=== PATIENT | female | born 1955 | race Caucasian/White ===

== ENCOUNTER 2021-07-12 06:13 | Day surgery (SDC) | payer MEDICARE, OTHER ==
[2021-07-11 08:53] VITALS: BMI 38.4
--- NOTE | 2021-07-11 17:02 | HP ---
HISTORY AND PHYSICAL DATE OF SURGERY: 07/12/2021 Maite Soni is a 66-year-old patient seen with progressive left shoulder pain. We discussed options for treatment. She elected to proceed with left shoulder arthroscopy. Consent was obtained. Medical clearance was provided by Dr. Espinoza Batres. PAST MEDICAL HISTORY: Hypertension, hyperlipidemia, [id number]-tioqzpdqa diabetes. PAST SURGICAL HISTORY: Hysterectomy. DAILY MEDICATIONS: Allopurinol, hydrochlorothiazide, levothyroxine, metformin, pravastatin. ALLERGIES: NONE. SOCIAL HISTORY: She denies current tobacco use. PHYSICAL EVALUATION OF THE LEFT SHOULDER: Flexion is 90 degrees. Abduction is 50 degrees. External rotation is 20 degrees with pain and weakness. Tenderness along the anterolateral acromion and rotator cuff insertion. Impingement is positive at 60 degrees. Cross-body adduction sign is positive. Drop-arm sign is positive. Distal neurovascular exam is intact. Left shoulder radiographs revealed a lateral downsloping acromion along with cystic changes of the tuberosity and acromioclavicular joint osteoarthritis. MRI left shoulder revealed rotator cuff tendinitis and acromioclavicular joint osteoarthritis. IMPRESSION: 1. Left shoulder impingement with possible rotator cuff tear. 2. Left shoulder acromioclavicular joint osteoarthritis. 3. Hypertension. 4. Hyperlipidemia. 5. Hypothyroidism. 6. Wdl-gbftykl-ifmnacqiz diabetes. PLAN: Left shoulder arthroscopy, subacromial decompression, López procedure, possible rotator cuff repair and debridement. MMODL / IJN: [id number] /
[2021-07-12] MEDS ORDERED: ONDANSETRON 4 MG/2 ML VIAL IVP ONE (06:25)
[2021-07-12] MEDS ORDERED: DEXAMETHASONE SOD PHOSPHATE 4 MG/ML 1 ML VIAL IV ONE (06:25)
[2021-07-12] MEDS ORDERED: LACTATED RINGERS 1,000 ML IV SCH (06:25)
[2021-07-12] MEDS ORDERED: HYDROmorphone 0.5 MG/0.5 ML SYRINGE IVP PRN (07:00)
[2021-07-12 07:13] LABS: Glucose,Whole Blood 104 mg/dL (75-99)
[2021-07-12] MEDS ORDERED: fentaNYL (PF) 50 MCG/ML 2 ML AMP IVP ONE (07:37)
[2021-07-12] MEDS ORDERED: MIDAZOLAM 2 MG/2 ML VIAL IVP ONE (07:37)
[2021-07-12] MEDS ORDERED: fentaNYL (PF) 50 MCG/ML 2 ML AMP ONE (07:53)
[2021-07-12] MEDS ORDERED: ePHEDrine 50 MG/ML 1 ML VIAL ONE (07:53)
[2021-07-12] MEDS ORDERED: PROPOFOL 10 MG/ML 20 ML VIAL IV ONE (07:53)
[2021-07-12] MEDS ORDERED: SUCCINYLCHOLINE CHLORIDE VIAL 200 MG/10 ML VIAL IV ONE (07:53)
[2021-07-12] MEDS ORDERED: ROPIVACAINE 5 MG/ML 30 ML VIAL ONE (07:53)
[2021-07-12] MEDS ORDERED: LIDOCAINE 1% INJ 10MG/ML (20 ML MDV) ONE (07:53)
[2021-07-12] MEDS ORDERED: GLYCOPYRROLATE 0.2 MG/ML 2 ML VIAL ONE (07:53)
[2021-07-12 09:29] VITALS: TEMP 97.1
--- NOTE | 2021-07-12 09:30 | P.OP ---
Date of Procedure: 07/12/21 Preoperative Diagnosis: Left shoulder impingement Postoperative Diagnosis: 1. Left shoulder rotator cuff tear 2. Left shoulder impingement 3. Left shoulder superficial labral tear Procedure(s) Performed: 1. Left shoulder arthroscopic rotator cuff repair 2. Left shoulder arthroscopic subacromial decompression 3. Left shoulder arthroscopic debridement labral tear Implants: 1Arthrex 4.75 swivel lock anchor Anesthesia: GETA, regional (Interscalene block) Surgeon: Maxim Beatty Swing Grinder #1: Allan Read Estimated Blood Loss (ml): 10 Pathology: none sent Condition: stable Disposition: PACU Indications for Procedure: 66-year-old patient seen with progressive left shoulder pain. After having treatment options discussed, she elected to proceed with arthroscopy. Operative Findings: See description of procedure Description of Procedure: Patient underwent an interscalene block by department of anesthesia. The patient was then taken to the operative suite. The patient underwent a general anesthetic by the department of anesthesia. The patient was placed into a lateral position and secured. There was appropriate padding of the bony prominence. Left shoulder was then prepped and draped in normal sterile orthopedic fashion. We placed the extremity in 10 pounds of longitudinal traction. A posterior incision was now made for a posterior working portal site. The trocar and cannula were inserted into the glenohumeral joint. Arthroscopy was initiated. Spinal needle was now inserted anteriorly, to ascertain the anterior working portal site. An incision was now made in that area, a trocar was inserted followed by a probe. There was some superficial tearing of the anterior and superior labrum. The biceps appeared intact. There were grade 1 chondromalacia changes throughout the glenohumeral joint with no tears. The remaining labrum appeared stable. I introduced a motorized shaver and debrided out the superficial tearing of the anterior superior labrum. The residual labrum was probed and found to be stable. Instruments now removed from glenohumeral joint. Utilizing the posterior working portal site, the trocar and cannula were i nserted into the subacromial space. Arthroscopy initiated. I made an incision 2 fingerbreadths lateral to the acromion. I introduced my trocar followed by my ArthroCare ablator. I now began ablating thick subacromial bursal tissue, which exposed the undersurface of the anterior acromion. There was diminished subacromial space. There was a very prominent anterior acromion. A motorized bur was introduced and a subacromial decompression was performed. I also excised some osteophytes off the inferior aspect of the distal clavicle. The AC joint was visualized and noted to be moderately arthritic, I did not feel enough to warrant a López procedure. I now turned my attention to the rotator cuff tendon. There was significant tearing along the mid body distal supraspinatus. Upon probing the area found a full-thickness perforation present. I debrided the margins getting down to stable tendon tissue. The defect measured 11.5 cm but was freely mobile over the footprint. I abraded the footprint with a motorized bur. With the assistance of Broderick AMBROSE past 3 everted mattress suture through good bites of rotator cuff tendon. Partial ulnar footprint area for insertion of an anchor. With the assistance of Broderick AMBROSE all 6 limbs of suture were passed through the eyelet of a 4.75 Arthrex swivel lock anchor. We placed the eyelet into the pre-punch hole. I held it in position while Broderick AMBROSE tensioned all suture limbs and deployed anchor with good fixation noted. All residual suture limbs were now clipped. We had good compression of the tendon along the entire footprint. Instruments now removed from the portal sites. All portal sites were approximated with nylon suture. Sterile dressings were applied followed by a shoulder sling. Allan AMBROSE assisted in this complex case. The patient was awakened, transferred to a bed, and taken to recovery in stable condition.
[2021-07-12 09:33] VITALS: RESP 16
[2021-07-12 10:54] VITALS: BP 146/80; PULSE 80
--- NOTE | 2021-07-12 11:08 | P.ANPRN ---
Procedure Note - Anesthesia - Nerve Block Performed Left Interscalene Single Time Out Performed: Yes ([id number]) Date of Procedure: 07/12/21 Procedure Start Time: 09:36 Procedure Stop Time: 09:41 Location of Patient: PreOp Indication: Acute Post-Operative Pain, Requested by Surgeon Specifically requested for management of pain by DrSilvino: Maxim Beatty Sedation Type: Sedate with meaningful contact maintained Preparation: Sterile Prep Position: Supine Catheter: None Needle Types: Pajunk Needle Gauge: 21 Ultrasound used to visualize needle placement: Yes Ultrasound used to observe medication spread: Yes Injectate: 0.5% Ropivacaine (see comment for volume) (30cc) Blood Aspirated: No Pain Paresthesia on Injection Noted: No Resistance on Injection: Normal Image Stored and Saved: Yes Events: Uneventful and Well Tolerated
== END 2021-07-12 11:13 | disposition home or self-care (01) ==
LOC: OR 06:13
PROVIDERS: ATTEND Orthopaedic Surgery
DX: M25.812 Other specified joint disorders, left shoulder (principal); M75.102 Unspecified rotator cuff tear or rupture of left shoulder, not specified as traumatic; I10 Essential (primary) hypertension; E78.5 Hyperlipidemia, unspecified; G47.33 Obstructive sleep apnea (adult) (pediatric); E11.9 Type 2 diabetes mellitus without complications; F41.9 Anxiety disorder, unspecified; E07.9 Disorder of thyroid, unspecified
CPT/HCPCS: 29826; 29822; 29827; 64415; 76942; J2250; J0330; J1100; J0690; J2405; J2001; J3010; J2795; J2704

== ENCOUNTER 2022-05-23 05:51 | Day surgery (SDC) | payer MEDICARE, OTHER ==
[2022-05-18 17:08] VITALS: BMI 37.6
--- NOTE | 2022-05-22 10:41 | HP ---
HISTORY AND PHYSICAL Surgery is scheduled for 05/23/2022. Maite Soni is a 67-year-old patient seen with progressive right shoulder pain. We discussed options for treatment. She elected to proceed with right shoulder arthroscopy. Consent regarding the procedure was obtained. PAST MEDICAL HISTORY: Hypothyroidism, nww-vrduxxz-epmkwgjce diabetes, hyperlipidemia. PAST SURGICAL HISTORY: Hysterectomy. MEDICATIONS: Allopurinol, levothyroxine, metformin, pravastatin, tramadol. ALLERGIES: None. SOCIAL HISTORY: She denies current tobacco use. PHYSICAL EVALUATION OF THE RIGHT SHOULDER: Flexion is 120 degrees, abduction is 110 degrees, external rotation is 30 degrees with some pain and weakness. She is tender along the anterolateral acromion and rotator cuff insertion site. Impingement is positive at 90 degrees. Drop-arm sign is positive. Distal neurovascular exam is intact. RADIOGRAPHS: Radiographs of the right shoulder revealed a type 2 acromion, evidence for acromioclavicular joint osteoarthritis. Right shoulder MRI revealed a partial rotator cuff tear, impingement, as well as acromioclavicular joint osteoarthritis. IMPRESSION: 1. Right shoulder impingement with partial rotator cuff tear. 2. Right shoulder acromioclavicular joint osteoarthritis. 3. Hypertension. 4. Hyperlipidemia. 5. Noninsulin-dependent diabetes. PLAN: Right shoulder arthroscopy with subacromial decompression, possible arthroscopic rotator cuff repair, López procedure and debridement. MMODL / IJN: [id number] /
[2022-05-23] MEDS ORDERED: ONDANSETRON 4 MG/2 ML VIAL IVP ONE (05:57)
[2022-05-23] MEDS ORDERED: LACTATED RINGERS 1,000 ML IV SCH (05:57)
[2022-05-23] MEDS ORDERED: LIDOCAINE 1% (10MG/ML) FOR IV START INTRADERMA PRN (05:57)
[2022-05-23 06:25] VITALS: TEMP 98.2
[2022-05-23 06:48] LABS: Glucose,Whole Blood 139 mg/dL (70-110)
[2022-05-23] MEDS ORDERED: DEXAMETHASONE SOD PHOSPHATE 4 MG/ML 1 ML VIAL IVP ONE (06:52)
[2022-05-23] MEDS ORDERED: MIDAZOLAM 2 MG/2 ML VIAL IVP ONE (06:53)
[2022-05-23] MEDS ORDERED: HYDROmorphone 0.5 MG/0.5 ML SYRINGE IVP PRN (07:00)
[2022-05-23] MEDS ORDERED: ROCURONIUM 10 MG/ML (5 ML VIAL) IV ONE (07:25)
[2022-05-23] MEDS ORDERED: PROPOFOL 10 MG/ML 20 ML VIAL IV ONE (07:25)
[2022-05-23] MEDS ORDERED: fentaNYL (PF) 50 MCG/ML 2 ML AMP ONE (07:25)
[2022-05-23] MEDS ORDERED: GLYCOPYRROLATE 0.2 MG/ML 2 ML VIAL ONE (07:25)
[2022-05-23] MEDS ORDERED: DEXAMETHASONE SOD PHOSPHATE 4 MG/ML 1 ML VIAL ONE (07:25)
[2022-05-23] MEDS ORDERED: ePHEDrine 50 MG/ML 1 ML VIAL ONE (07:25)
[2022-05-23] MEDS ORDERED: MIDAZOLAM 2 MG/2 ML VIAL ONE (07:25)
[2022-05-23] MEDS ORDERED: LIDOCAINE 2% INJ 20 MG/ML (2 ML VIAL) ONE (07:25)
[2022-05-23] MEDS ORDERED: NEOSTIGMINE 1 MG/ML 10 ML VIAL ONE (07:25)
[2022-05-23] MEDS ORDERED: ROPIVACAINE 5 MG/ML 30 ML VIAL ONE (07:25)
[2022-05-23] MEDS ORDERED: SODIUM CHLORIDE 0.9% (PF) 10 ML VIAL ONE (07:25)
[2022-05-23] MEDS ORDERED: SUCCINYLCHOLINE CHLORIDE 200 MG/10 ML VIAL IV ONE (07:25)
[2022-05-23 08:56] VITALS: RESP 16
--- NOTE | 2022-05-23 09:00 | P.OP ---
Date of Procedure: 05/23/22 Preoperative Diagnosis: Right shoulder impingement Postoperative Diagnosis: 1. Right shoulder rotator cuff tear 2. Right shoulder impingement 3. Right shoulder superficial labral tear Procedure(s) Performed: 1. Right shoulder arthroscopic rotator cuff repair 2. Right shoulder arthroscopic subacromial decompression 3. Right shoulder arthroscopic debridement labral tear Implants: 15.5 Arthrex swivel lock anchor Anesthesia: GETA, regional (Interscalene block) Surgeon: Maxim Beatty Junior Technical Writer #1: Allan Read Estimated Blood Loss (ml): 10 Pathology: none sent Condition: stable Disposition: PACU Indications for Procedure: 67-year-old patient seen with progressive right shoulder pain. After having treatment options discussed, she elected to proceed with arthroscopy. Operative Findings: See description of procedure Description of Procedure: Patient underwent an interscalene block by department of anesthesia. The patient was then taken to the operative suite. The patient underwent a general anesthetic by the department of anesthesia. The patient was placed into a lateral position and secured. There was appropriate padding of the bony promine nce. Right shoulder was then prepped and draped in normal sterile orthopedic fashion. We placed the extremity in 10 pounds of longitudinal traction. A posterior incision was now made for a posterior working portal site. The trocar and cannula were inserted into the glenohumeral joint. Arthroscopy was initiated. Spinal needle was now inserted anteriorly, to ascertain the anterior working portal site. An incision was now made in that area, a trocar was inserted followed by a probe. There was some superficial tearing of the superior labrum. The biceps appeared intact. There were very mild grade 1 chondromalacia changes of the humeral head. I debrided out the superficial labral tear getting down to stable labral tissue. The residual labrum was probed and was found to be stable. Instruments were now removed from the glenohumeral joint. Utilizing the posterior working portal site, the trocar and cannula were inserted into the subacromial space. Arthroscopy initiated. I made an incision 2 fingerbreadths lateral to the acromion. I introduced my trocar followed by my ArthroCare ablator. I now began ablating thick subacromial bursal tissue, which exposed the undersurface of the anterior acromion. There was diminished subacromial space. There was a very prominent anterior acromion. A motorized bur was introduced and a subacromial decompression was performed. I also excised some osteophytes off the inferior aspect of the distal clavicle. The AC joint was visualized and noted to be moderately arthritic, I did not think enough to warrant a López procedure. I turned my attention to the rotator cuff tendon. There was a full-thickness perforation present along the distal supraspinatus. I debrided the margins getting down to stable tendon tissue. The defect/tear measuring approximately 1.5 cm and was freely mobile over the footprint. I abraded the footprint with a motorized bur. With the assistance of Broderick AMBROSE I now passed 3 everted mattress sutures through good bites of rotator cuff tendon. I punched along the footprint area for insertion of an anchor. All 6 limbs of suture were now passed through the eyelet of a 5.5 Arthrex swivel lock anchor. I placed the eyelet into our pre-punched hole. I held it in position while Broderick AMBROSE tensioned all 6 limbs of suture and deployed the anchor was good fixation noted. All residual suture limbs were now clipped. We had good compression of the tendon along the entire footprint. Instruments now removed from the portal sites. All portal sites were approximated with nylon suture. Sterile dressings were applied followed by a shoulder sling. Allan AMBROSE assisted in this complex case. The patient was awakened, transferred to a bed, and taken to recovery in stable condition.
[2022-05-23 10:00] VITALS: BP 143/82; PULSE 75
--- NOTE | 2022-05-24 10:53 | P.ANPRN ---
Procedure Note - Anesthesia - Nerve Block Performed Right Interscalene Single Time Out Performed: Yes Date of Procedure: 05/23/22 Procedure Start Time: 06:52 Procedure Stop Time: 07:01 Location of Patient: PreOp Indication: Acute Post-Operative Pain, Requested by Surgeon Sedation Type: Sedate with meaningful contact maintained Preparation: Sterile Prep Position: Supine Needle Types: Pajunk Needle Gauge: 21 Ultrasound used to visualize needle placement: Yes Ultrasound used to observe medication spread: Yes Blood Aspirated: No Pain Paresthesia on Injection Noted: No Resistance on Injection: Normal Image Stored and Saved: Yes Events: Uneventful and Well Tolerated (Ropivacaine 0.5% 20 mL plus dexamethasone 4 mg)
== END 2022-05-23 10:45 | disposition home or self-care (01) ==
LOC: OR 05:51
PROVIDERS: ATTEND Orthopaedic Surgery
DX: M75.121 Complete rotator cuff tear or rupture of right shoulder, not specified as traumatic (principal); M19.011 Primary osteoarthritis, right shoulder; M75.41 Impingement syndrome of right shoulder; M94.211 Chondromalacia, right shoulder; S43.431A Superior glenoid labrum lesion of right shoulder, initial encounter; M25.711 Osteophyte, right shoulder; I10 Essential (primary) hypertension; E78.5 Hyperlipidemia, unspecified; E11.9 Type 2 diabetes mellitus without complications; E03.9 Hypothyroidism, unspecified; Z79.890 Hormone replacement therapy; Z79.1 Long term (current) use of non-steroidal anti-inflammatories (NSAID); Z79.84 Long term (current) use of oral hypoglycemic drugs; Z79.83 Long term (current) use of bisphosphonates; Z79.899 Other long term (current) drug therapy
CPT/HCPCS: 29827; 29826; 64415; 76942; C1713; J2250; J0330; J1100; J2710; J0690; J2405; J3010; J2795; J2704; J2001

== ENCOUNTER 2022-06-08 12:26 | Emergency (ER) | payer MEDICARE, OTHER ==
[2022-06-08] MEDS ORDERED: KETOROLAC 15 MG/ML 1 ML VIAL IM STA (12:50)
[2022-06-08] MEDS ORDERED: LIDOCAINE 5% PATCH TOPICAL ONE (12:50)
[2022-06-08] MEDS ORDERED: HYDROcodone/APAP 7.5-325MG 1 EACH TAB PO ONE (12:50)
--- NOTE | 2022-06-08 13:12 | ED ---
Fall HPI - General Chief Complaint: Extremity Injury, Upper Stated Complaint: post op, fall Time Seen by Provider: 06/08/22 12:45 Source: patient, RN notes reviewed Mode of arrival: ambulatory Limitations: no limitations - History of Present Illness Initial Comments: This is a 67-year-old female who presents to the emergency department for a fall. States that this morning, she slipped on the ice and fell on her left side. On the way down, she tried to grab a trash can with her right arm. She is now complaining to pain in the entire right arm and shoulder and in the left lower back. States that the back pain causes pain when breathing. On 05/23 she had right shoulder surgery with Dr. Beatty for a torn rotator cuff. Her pain had been well-controlled with Tylenol prior to this fall, however it is very painful now. She is worried about further damage to the shoulder. Denies her head or any loss of consciousness. She is not taking any blood thinners. Denies any fevers, chills, sore throat, cough, dyspnea, chest pain, palpitations, abdominal pain, nausea, vomiting, diarrhea, or headaches. MD Complaint: fall Fall From: standing Fall Witnessed: yes, by family Loss of Consciousness: none Symptoms Prior to Fall: none Context: tripped/slipped - Related Data Home Medications Medication Instructions Recorded Confirmed Albuterol Inhaler [Ventolin Hfa 2 puff INHALATION RT-QID PRN 07/11/21 05/18/22 Inhaler] Albuterol Nebulized [Ventolin 2.5 mg INHALATION Q4H PRN 07/11/21 05/18/22 Nebulized] Ascorbic Acid [Vitamin C] 500 mg PO DAILY 07/11/21 05/18/22 Cholecalciferol [Vitamin D3 (25 50 mcg PO DAILY 07/11/21 05/18/22 Mcg = 1000 Iu)] Cyanocobalamin (Vitamin B-12) 5,000 mcg PO DAILY 07/11/21 05/18/22 [Vitamin B12] Levothyroxine Sodium [Synthroid] 100 mcg PO DAILY 07/11/21 05/18/22 Magnesium Oxide [Mag-Oxide] 200 mg PO DAILY 07/11/21 05/18/22 Multivitamins, Thera [Multivitamin 1 tab PO DAILY 07/11/21 05/18/22 (formulary)] Pioglitazone [Actos] 15 mg PO DAILY 07/11/21 05/18/22 Pravastatin Sodium [Pravachol] 10 mg PO DAILY 07/11/21 05/18/22 Sertraline [Zoloft] 50 mg PO HS 07/11/21 05/18/22 Zinc 100 mg PO DAILY 07/11/21 05/18/22 allopurinoL [Zyloprim] 300 mg PO DAILY 07/11/21 05/18/22 hydroCHLOROthiazide [Hydrodiuril] 12.5 mg PO DAILY 07/11/21 05/18/22 metFORMIN HCL [Glucophage] 500 mg PO BID 07/11/21 05/18/22 Acetaminophen-Codeine 300-30mg 1 tab PO Q6H PRN 05/18/22 05/18/22 [Tylenol w/codeine #3] Furosemide [Lasix] 10 mg PO Q2D 05/18/22 05/18/22 Previous Rx's Medication Instructions Recorded HYDROcodone/APAP 7.5-325MG [[place] 1 each PO Q6HR PRN #28 tab 05/23/22 7.5] Cyclobenzaprine [Flexeril] 5 mg PO TID PRN #15 tablet 06/08/22 HYDROcodone/APAP 5-325MG [[place] 1 tab PO Q6HR PRN 3 Days #12 tab 06/08/22 5-325] Lidocaine 5% Patch [Lidoderm 5% 1 patch TOPICAL DAILY PRN #30 patch 06/08/22 Patch] Allergies Allergy/AdvReac Type Severity Reaction Status Date / Time amoxicillin Allergy Rash/Hives Verified 06/08/22 12:30 gabapentin Allergy Rash/Hives Verified 06/08/22 12:30 levofloxacin [From Levaquin] Allergy Rash/Hives Verified 06/08/22 12:30 lomefloxacin [From Maxaquin] Allergy Rash/Hives Verified 06/08/22 12:30 Penicillins Allergy Rash/Hives Verified 06/08/22 12:30 Review of Systems ROS Statement: Those systems with pertinent positive or pertinent negative responses have been documented in the HPI. ROS Other: All systems not noted in ROS Statement are negative. Past Medical History Past Medical History: Asthma, Cancer, Diabetes Mellitus, Hyperlipidemia, Hypertension, Osteoarthritis (OA), Sleep Apnea/CPAP/BIPAP, Thyroid Disorder Additional Past Medical History / Comment(s): C PAP MACHINE, SKIN CANCER. BLE NEUROPATHY History of Any Multi-Drug Resistant Organisms: None Reported Past Surgical History: Hysterectomy, Tonsillectomy Additional Past Surgical History / Comment(s): RK EYE SURGERY -CONCHA EYELID SURGERY X2 , LT SHOULDER, MOHS SX RT LEG, LT LEG, COLONOSCOPY, BILAT TEAR DUCT STENTS 05/17/22-NO ANESTHESIA Past Anesthesia/Blood Transfusion Reactions: Motion Sickness Past Psychological History: No Psychological Hx Reported Smoking Status: Former smoker Past Alcohol Use History: None Reported Past Drug Use History: None Reported - Past Family History Father Family Medical History: Cancer Brother(s) Family Medical History: Cancer Additional Family Medical History / Comment(s): COLON CANCER Sister(s) Family Medical History: Cancer Additional Family Medical History / Comment(s): BREAST CANCER General Exam Limitations: no limitations General appearance: alert, in no apparent distress Head exam: Present: atraumatic, normocephalic, normal inspection Respiratory exam: Present: normal lung sounds bilaterally. Absent: respiratory distress, wheezes, rales, rhonchi, stridor Cardiovascular Exam: Present: regular rate, normal rhythm, normal heart sounds. Absent: systolic murmur, diastolic murmur, rubs, gallop, clicks Extremities exam: Present: other (Tenderness to palpation over the right shoulder and humerus. Patient has her arm in a sling and is refusing to move it. No obvious deformities, swelling, or ecchymosis.) Back exam: Present: other (Tender to palpation of the left mid back.) Neurological exam: Present: alert, oriented X3, CN II-XII intact Psychiatric exam: Present: normal affect, normal mood Skin exam: Present: warm, dry, intact, normal color. Absent: rash Course Vital Signs 06/08/22 06/08/22 12:27 15:03 Temperature 96.5 F L 96.7 F L Pulse Rate 60 62 Respiratory 22 20 Rate Blood Pressure 134/105 129/90 O2 Sat by Pulse 99 98 Oximetry Medical Decision Making - Medical Decision Making This is a 67-year-old female who presents to the emergency department for right shoulder and left mid-lower back pain. Was pt. sent in by a medical professional or institution? @ -No Did you speak to anyone other than the patient for history? @ -Her Did you review nursing and triage notes? @ -Yes, and I agree, it is accurate with regards to the patient's symptoms. Were old charts reviewed? @ -No Differential Diagnosis? @ -Differential Back Pain: Strain, zoster, cauda equina syndrome, epidural abscess, vertebral osteomyelitis, discitis, fracture, subluxation, disc herniation, DJD, spinal stenosis, dissection, AAA, pancreatitis, peptic ulcer disease, pyelonephritis, kidney stone, this is not meant to be an all-inclusive list. -Differential Right Shoulder Pain Fracture, dislocation, rotator cuff injury, contusion, tendinitis, this is not meant to be an all-inclusive list. X-rays interpreted by me (1pt min.)? @ -X-ray of the lumbar spine obtained. My interpretation reveals multiple degenerative changes and no acute fractures or dislocations. X-ray of the chest and left lateral ribs obtained, my interpretation reveals no evidence of an acute rib fracture. X-ray of the right shoulder and humerus obtained, my interpretation also identifies no acute fractures or dislocations. What testing was considered but not performed? (CT, X-rays, U/S, labs)? Why? @ -None What meds were considered but not given? Why? @ -None Did you discuss the management of the patient with other professionals? @ -No Did you reconcile home meds? @ -No Was smoking cessation discussed for >3mins.? @ -No Was critical care preformed (if so, how long)? @ -No Were there social determinants of health that impacted care today? How? (Homelessness, low income, unemployed, alcoholism, drug addiction, transportation, low edu. Level, literacy, decrease access to med. care, residential, rehab)? @ -No Was there de-escalation of care discussed even if they declined? (Discuss DNR or withdrawal of care, Hospice)? @ -No What co-morbidities impacted this encounter? (DM, HTN, Smoking, COPD, CAD, Cancer, CVA, Hep., AIDS, mental health diagnosis, sleep apnea, morbid obesity)? @ -Morbid obesity Was patient admitted / discharged? @ -Discharged. XRs obtained revealing no acute findings. She was given Toradol, [place], and a lidocaine patch, and states that she had notable relief in symptoms. Prescription for [place], flexeril, and lidocaine patches provided with dosing instructions reviewed. She is advised to alternate with ibuprofen and Tylenol for pain relief and to take the [place] sparingly when her pain is the most severe. Advised that both the [place] and Flexeril are sedating and she should avoid driving or operating machinery when taking them. Also advised that she should avoid taking them together, as this will increase the sedative effects. Recommended she contact her orthopedic provider to discuss a sooner follow-up visit in the event any additional imaging is needed after the fall. Patient is also instructed to apply ice to the areas of pain for 10-15 minutes every 2-3 hours for the first 2-3 days followed by heat there afterwards. Undiagnosed new problem with uncertain prognosis? @ -None Drug Therapy requiring intensive monitoring for toxicity (Heparin, Nitro, Insulin, Cardizem)? @ -None Were any procedures done? @ -None Diagnosis/symptom? @ -Right shoulder pain Acute, or Chronic, or Acute on Chronic? @ -Acute Uncomplicated (without systemic symptoms) or Complicated (systemic symptoms)? @ -Uncomplicated Side effects of treatment? @ -None Exacerbation, Progression, or Severe Exacerbation] @ -Not applicable Poses a threat to life or bodily function? @ -The arm pain is interfering with her function. Diagnosis/symptom? @ -Left-sided back pain Acute, or Chronic, or Acute on Chronic? @ -Acute Uncomplicated (without systemic symptoms) or Complicated (systemic symptoms)? @ -Uncomplicated Side effects of treatment? @ -None Exacerbation, Progression, or Severe Exacerbation] @ -Not applicable Poses a threat to life or bodily function? @ -The pain is interfering with her function. Return precautions reviewed in depth, the patient is instructed to return to the emergency department with any new, worsening, or concerning symptoms. Patient verbalized understanding. This case was discussed in detail with the attending ED physician, Dr. Ferro. Presentation, findings, and treatment plan discussed in detail as well. - Radiology Data Radiology results: report reviewed, image reviewed Disposition Clinical Impression: Fall, Left-sided back pain, Right shoulder pain Disposition: HOME SELF-CARE Instructions (If sedation given, give patient instructions): Shoulder Sprain (ED), Back Pain (ED), Shoulder Pain (ED) Additional Instructions: Return to the emergency department with any new, worsening, or concerning symptoms. Alternate with ibuprofen and Tylenol as needed for pain relief. Take the [place] sparingly when your pain is the most severe and avoid driving or operating machinery when taking this. Be aware that the Flexeril is also sedating and should be taken at night until you know how it affects you. You should also avoid driving or operating machinery when taking this. You can use the lidocaine patches daily as needed. Apply ice for 10-15 minutes every 2-3 hours for the first 2-3 days followed by heat there afterwards. Contact your orthopedic office and discuss a sooner follow-up appointment for reevaluation after the injury. Prescriptions: Cyclobenzaprine [Flexeril] 5 mg PO TID PRN #15 tablet PRN Reason: Pain Lidocaine 5% Patch [Lidoderm 5% Patch] 1 patch TOPICAL DAILY PRN #30 patch PRN Reason: Pain HYDROcodone/APAP 5-325MG [[place] 5-325] 1 tab PO Q6HR PRN 3 Days #12 tab PRN Reason: Pain Is patient prescribed a controlled substance at d/c from ED?: Yes When asked, does pt state using other controlled substances?: No If prescribed controlled substance>3 days was MAPS reviewed?: Prescribed <3 Days Referrals: Espinoza Batres MD [Primary Care Provider] - 1-2 days
--- NOTE | 2022-06-08 14:04 | XR ---
EXAMINATION TYPE: XR lumbar spine 2 or 3V DATE OF EXAM: 06/08/2022 CLINICAL HISTORY: Pain after fall injury. TECHNIQUE: Frontal and lateral images of the lumbar spine are obtained. COMPARISON: None FINDINGS: There are 5 lumbar type vertebral bodies identified.. There is slight levoconvex scoliotic curvature centered at L2-L3 level. There is grade 1 retrolisthesis L3 on L4. Vertebral body heights are maintained. Moderate disc space narrowing L2-L3 level is seen. Large spur anterior right L1-L2 le heydi is present. There is additional [id number] multilevel anterior and lateral spurring. No acu te displaced fracture is seen. Overlying soft tissue is unremarkable. IMPRESSION: As above.
--- NOTE | 2022-06-08 14:06 | XR ---
EXAMINATION TYPE: XR shoulder complete RT, XR humerus RT DATE OF EXAM: 06/08/2022 CLINICAL HISTORY: Pain after fall injury. TECHNIQUE: Three views of the right shoulder are obtained. 2 views right humerus. COMPARISON: Prior outside right shoulder x-ray December 12, 2021. FINDINGS: There is no acute fracture/dislocation evident in the right shoulder. Mild to moderate spurring at the acromioclavicular joint is redemonstrated. Type II downsloping acromion is again seen . Glenohumeral joint is preserved. The visualized ribs are intact and unremarkable. Images of the right humerus show no acute displaced fracture. Visualized portion of the right elbow j oint appears within normal limits. Overlying soft tissue is unremarkable. IMPRESSION: There is no acute fracture or dislocation in the right humerus or shoulder.
--- NOTE | 2022-06-08 14:07 | XR ---
EXAMINATION TYPE: XR ribs LT w pa chest xray DATE OF EXAM: 06/08/2022 CLINICAL HISTORY: Chest and left-sided rib pain after fall injury TECHNIQUE: Single frontal view of the chest is obtained. A frontal and oblique images of the left-abraham ed ribs. COMPARISON: None FINDINGS: There is no focal air space opacity, pleural effusion, or pneumothorax seen. The cardiac silhouette size is within normal limits. The osseous structures are intact. Dedicated images of the left-sided ribs show no acute displaced fracture. Overlying soft tissue is un remarkable. IMPRESSION: 1. No acute cardiopulmonary process. 2. No acute displaced left-sided rib fractures.
[2022-06-08 15:03] VITALS: BP 129/90; PULSE 62; RESP 20; TEMP 96.7
== END 2022-06-08 15:02 | disposition home or self-care (01) ==
LOC: EC 12:26
DX: M25.511 Pain in right shoulder (principal); J45.909 Unspecified asthma, uncomplicated; E11.9 Type 2 diabetes mellitus without complications; I10 Essential (primary) hypertension; M19.90 Unspecified osteoarthritis, unspecified site; G47.30 Sleep apnea, unspecified; E07.9 Disorder of thyroid, unspecified; Z87.891 Personal history of nicotine dependence; E78.5 Hyperlipidemia, unspecified; Z79.84 Long term (current) use of oral hypoglycemic drugs; Z79.890 Hormone replacement therapy; Z79.899 Other long term (current) drug therapy; Z79.1 Long term (current) use of non-steroidal anti-inflammatories (NSAID); Z88.5 Allergy status to narcotic agent; Z88.1 Allergy status to other antibiotic agents; Z88.0 Allergy status to penicillin; W01.0XXA Fall on same level from slipping, tripping and stumbling without subsequent striking against object, initial encounter
CPT/HCPCS: 71101; 72100; 73030; 73060; 99284; 96372; J1885; 99283

== ENCOUNTER → 2023-11-29 | Outpatient (CLI) | payer MEDICARE, OTHER ==
--- NOTE | 2023-11-29 21:01 | MR ---
EXAMINATION TYPE: MR lumbar spine wo con DATE OF EXAM: 11/29/2023 11:01 AM CLINICAL INDICATION:Female, 68 years old with history of M06.9 RHEUMATOID ARTHRITIS, UNSPECIFIED; PHH , Lower back pain that travels down both legs for a few years COMPARISON: 11/20/2023, 03/13/2023 TECHNIQUE: Multi planar, multi sequence imaging was performed utilizing: T1-weighted, T2-weighted, a nd turbo inversion recovery imaging of the lumbar spine. IV Contrast: cc . (None if empty) FINDINGS: Alignment: The lumbar vertebral bodies have preserved heights with grade 1 anterolisthesis of L4 on L 5. Cord: The conus medullaris and the distal spinal cord appear unremarkable with regards to their signa l intensity and morphology. Bones/Discs: Degeneration changes throughout the spine with osteophyte formation and facet joint arth ropathy. Multilevel disc desiccation is present. T12-L1: No evidence of significant spinal canal stenosis or neural foraminal stenosis. L1-L2: No evidence of significant spinal canal stenosis or neural foraminal stenosis. L2-L3: Disc bulge and facet joint arthropathy result in moderate to severe spinal canal and moderate bilateral neural foraminal stenosis. L3-L4: Disc bulge and facet joint arthropathy result in mild spinal canal and moderate to severe bila teral neural foraminal stenosis. L4-L5: Disc uncovering from grade 1 anterolisthesis and facet joint arthropathy with mild spinal maryan l stenosis and moderate to severe right and severe left bilateral neural foraminal stenosis. L5-S1: The disc has a rounded posterior morphology without significant spinal canal stenosis. Facet j oint arthropathy with moderate right and severe left neural foraminal stenosis. Trace bilateral is fa cet joint effusions. No significant spinal canal or neural foraminal stenosis in the remainder of the visualized levels. Other findings: None. IMPRESSION: Overall findings similar to prior in 2022 given difference in slice selection and technique. 1. Disc bulge with moderate to severe spinal canal stenosis 2. Moderate disc degeneration with associated osteoarthritic changes. Moderate right and severe left neural foraminal stenosis at L5-S1, moderate to severe right and severe left at L4-L5 moderate to se lashay bilateral L3-L4 neural foraminal stenosis. 3. Grade 1 anterolisthesis of and L4 and L5.
== END | disposition home or self-care (01) ==
LOC: RADMRIMAIN 10:05
PROVIDERS: ATTEND Orthopaedic Surgery
DX: M43.16 Spondylolisthesis, lumbar region (principal); M06.9 Rheumatoid arthritis, unspecified; M48.061 Spinal stenosis, lumbar region without neurogenic claudication; M51.36 Other intervertebral disc degeneration, lumbar region
CPT/HCPCS: 72148

== ENCOUNTER → 2024-02-05 | Outpatient (CLI) | payer MEDICARE, OTHER ==
[2024-02-05 12:25] VITALS: BP 178/84; PULSE 97; RESP 16; TEMP 98.8
--- NOTE | 2024-02-05 15:33 | P.PAINPG ---
Objective - Vital Signs Vital signs: Vital Signs Temp 98.8 F 02/05/24 12:23 Pulse 97 02/05/24 12:23 Resp 16 02/05/24 12:23 BP 178/84 02/05/24 12:23 Pulse Ox 60 L 02/05/24 12:23 FiO2 Intake & Output 02/04/24 02/05/24 02/05/24 18:59 06:59 18:59 Weight 106.594 kg PQRS Measure Charge Sheet Mode of Arrival: Ambulatory Comment: HISTORY OF PRESENT ILLNESS: A 68 yr old female w at side as a referral from Dr Palacios presents today w severe and chronic secondary to radiculopathy, spondylosis and facet arthropathy without myelopathy for evaluation. Pt states pain level is provoked at 8 /10 in intensity, constant, localized in the lower lumbar spine, predominantly axial, sharp in character without shooting pain. Pain is provoked by standing/ walking for periods > 20 min. Pain is alleviated by PT x 6 wks which ended in Aug 2022, physician guided home stretches 4 times weekly since Aug 2022, medications (Tyl, Celebrex), repositioning and rest . PMH: OA, Asthma, Cancer, NIDDM II, Hyperlipidemia, HTN, CHALINO, Hypothyroidism PSH: Hysterectomy, Tonsillectomy, RK Eye Surgery, Blepharoplasty x2, L Shoulder Surgery, MOHS Surgery on RLE, LLE Surgery, Colonoscopy, BL Tear duct Stents (2022) SH: Former tobacco user, No ETOH abuse, No illicit drug use FH: Fa- CA. Bro- Colon CA. Sis- Breast CA All: See list Meds: See list REVIEW OF ORGAN SYSTEMS: CONSTITUTIONAL: No fevers or chills. No recent weight loss. NEUROLOGICAL: + numbness and tingling along the distal extremities. No seizure disorders or headaches. MUSCULOSKELETAL: + pain PSYCHIATRIC: Denies current depression or suicidal thoughts. Physical Examinations : Constitutional : Cooperative , not in acute distress . Neurologic : Cranial nerve II to XII intact. No focal neurological deficits. Psychiatric : alert & oriented x 3. Matching mood & appropriate affect. Judgment & insight intact. Musculoskeletal : Cervical Spine Motor strength in the deltoid and biceps: Normal right side. Normal Left side Motor strength biceps and the wrist extensors: Normal right side . Normal left side Motor strength in the triceps muscle: Normal right side. Normal left side Deep tendon reflexes: Normal at the biceps. Normal at Brachioradialis. Normal at triceps Vertebral body tenderness to deep palpation over Cervical facet loading test: positive bilaterally Spurling test: positive bilaterally Neck distraction test: positive bilaterally Pinky sign: positive bilaterally Lumbar spine Motor strength lower extremities ,thigh and legs 5/5 Right side , 5/5 Left side Deep tendon reflexes : Normal Knee Jerk. Normal Ankle Jerk Vertebral body tenderness over Maldonado Test positive Lumbar facet Loading Test: positive Right / positive Left L4-L5, L5-S1 Range of motion of the lumbar spine Flexion 30 degrees, extension 10 degrees Straight Leg Raise test: Left/ Right positive at degrees Timi test: positive right / positive left. Severe tenderness over the Sacroiliac joint on the Right / Left sides Gaenslen test: positive bilaterally Seated flexion test: positive bilaterally. Sacral spine : Severe tenderness over the Sacroiliac joint: right side / left side Range of motion: Flexion of the lumbar spine <60 degrees Range of motion: Extension of the lumbar spine <20 degrees Gaenslen's Test positive Timi test: positive right side / left side Thigh Thrust Test Sacral Thrust Test Imaging: MRI non contrast lumbar spine from 11/29/23 reviewed Assessment/ Plan : Lumbar radiculopathy Recommendation of BL MBB L4-L5/ L5-S1 #1. Risks, benefits of procedure discussed and patient verbalized understanding. Admits to anti- coagulant use or medical history of diabetes. Protocol for discontinuation/ continuation of medications hollie procedure discussed. Minimal anesthesia provided, if clinically indicated, consisting of Versed and Fentanyl. All questions answered. I have spent greater than 30 minutes on patient care today. Dr Benítez was available by phone for the evaluation of this patient. The time was used to review the medical records including relevant urine studies and Prescription history (MAPs), review of the available imaging, evaluation and examination of the patient, coordination of care with the medical staff and if applicable referring physicians, as well as creation of the medical record PQRS Narrative: Blood Pressure 178/84 Scale Used Numeric (1 - 10) Hx Alcohol Use (MH) No Home Medications: Ambulatory Orders Albuterol Inhaler [Ventolin Hfa Inhaler] 2 puff INHALATION RT-QID PRN 07/11/21 Albuterol Nebulized [Ventolin Nebulized] 2.5 mg INHALATION Q4H PRN 07/11/21 Ascorbic Acid [Vitamin C] 500 mg PO DAILY 07/11/21 Cholecalciferol [Vitamin D3 (25 Mcg = 1000 Iu)] 50 mcg PO DAILY 07/11/21 Cyanocobalamin (Vitamin B-12) [Vitamin B12] 5,000 mcg PO DAILY 07/11/21 Levothyroxine Sodium [Synthroid] 100 mcg PO DAILY 07/11/21 Magnesium Oxide [Mag-Oxide] 200 mg PO DAILY 07/11/21 Multivitamins, Thera [Multivitamin (formulary)] 1 tab PO DAILY 07/11/21 Pioglitazone [Actos] 15 mg PO DAILY 07/11/21 Pravastatin Sodium [Pravachol] 10 mg PO DAILY 07/11/21 Sertraline [Zoloft] 50 mg PO HS 07/11/21 Zinc 100 mg PO DAILY 07/11/21 allopurinoL [Zyloprim] 300 mg PO DAILY 07/11/21 hydroCHLOROthiazide [Hydrodiuril] 12.5 mg PO DAILY 07/11/21 metFORMIN HCL [Glucophage] 500 mg PO BID 07/11/21 Acetaminophen-Codeine 300-30mg [Tylenol w/codeine #3] 1 tab PO Q6H PRN 05/18/22 Furosemide [Lasix] 10 mg PO Q2D 05/18/22 HYDROcodone/APAP 7.5-325MG [[place] 7.5] 1 each PO Q6HR PRN #28 tab 05/23/22 Cyclobenzaprine [Flexeril] 5 mg PO TID PRN #15 tablet 06/08/22 HYDROcodone/APAP 5-325MG [[place] 5-325] 1 tab PO Q6HR PRN 3 Days #12 tab 06/08/22 Lidocaine 5% Patch [Lidoderm 5% Patch] 1 patch TOPICAL DAILY PRN #30 patch 06/08/22 Controlled Substance Measures - Controlled Substance Measures Is patient prescribed a controlled substance at discharge?: No
== END ==
LOC: PNWHC3 12:00
PROVIDERS: ATTEND Specialist
DX: M43.16 Spondylolisthesis, lumbar region (principal); M47.816 Spondylosis without myelopathy or radiculopathy, lumbar region; M54.16 Radiculopathy, lumbar region; M51.26 Other intervertebral disc displacement, lumbar region; M99.73 Connective tissue and disc stenosis of intervertebral foramina of lumbar region; Z88.0 Allergy status to penicillin; Z91.09 Other allergy status, other than to drugs and biological substances; Z88.8 Allergy status to other drugs, medicaments and biological substances; Z88.1 Allergy status to other antibiotic agents; Z91.018 Allergy to other foods; Z88.9 Allergy status to unspecified drugs, medicaments and biological substances
CPT/HCPCS: 99211

== ENCOUNTER 2024-02-28 12:03 | Day surgery (SDC) | payer MEDICARE, OTHER ==
[2024-02-25 15:16] VITALS: BMI 34.9
[~2024-02-28 12:03] MED LIST: LACTATED RINGERS 1,000 ML IV SCH
[2024-02-28 12:53] VITALS: RESP 16; TEMP 97.7
[2024-02-28] MEDS: IV FLUID CONTINUATION 1,000 ML IV ONE ×3 (12:54→13:42)
[2024-02-28 13:03] LABS: Glucose,Whole Blood 104 mg/dL (70-110)
[2024-02-28] MEDS ORDERED: MIDAZOLAM 2 MG/2 ML VIAL ONE (13:09)
[2024-02-28] MEDS ORDERED: ROPIVACAINE 5MG/ML 20ML VIAL ONE (13:09)
--- NOTE | 2024-02-28 13:42 | FL ---
EXAMINATION TYPE: FL guided pain mgmt statistic DATE OF EXAM: 02/28/2024 1:35 PM COMPARISON: Pre Operative Images if available both CT/MRI or plain film CLINICAL INDICATION: Female, 68 years old with history of Mike Lumbar Facet; TECHNIQUE: FL guided pain mgmt statistic, multiple fluoroscopic images provided for procedure. Total fluoroscopy time: 66.9 seconds Total submitted images to PACS: 3 DAP: [id number] mGym2 Gycm2 uGym2 cGycm2 or equivalent. FINDINGS: Fluoroscopic images during injection for pain management demonstrate multilevel degeneration changes throughout the spine. No evidence for fracture. No acute process identified. IMPRESSION: 1. No evidence for intraoperative complication. 2. Please see the operative/procedural note for further details. [facility], , 02/28/2024 1:40 PM
--- NOTE | 2024-02-28 13:45 | P.PCN ---
Description of Procedure: Preprocedure diagnosis. 1. Lumbar spondylosis with facet joint arthropathy without myelopathy. 2. Lumbar degenerative disc disease. Postprocedure diagnosis. As above. Procedure done. Bilateral diagnostic block with local anesthetics at L3, L4, L5 medial branch to target the facet joint L4- 5 and L5-S1 with fluoroscopic guidan ce (fluoroscopy images are available in the radiology department) . Anesthesia. Moderate sedation with intravenous Versed 2 mg and fentanyl and local infiltration with local anesthetics. In OR, continuous pulse ox, EKG, blood pressure and verbal communication was maintained. Time. Blood loss. Minimal. Indication. The patient has low back pain secondary to lumbar facet joint arthropathy. Discussed the procedure and alternative and complications which includes infection, bleeding, nerve damage, paralysis ,aggravation of pain. Patient understands and all questions were answered. Patient iunderstands that if any pain relief occurs it will last for a few hours to a few days maximum. Procedure description. After getting consent patient was taken in the OR in prone position. Back prepped with chlorhexidine and draped in sterile fashion. After injecting 5 mL of plain 1% lidocaine subcutaneously, a 22-gauge spinal needle was introduced under tunnel vision of the fluoroscope at the junction of the superior articular process with RIGHT ala of the sacrum. With slight oblique fluoroscope, after injecting 5 mL of plain 1% lidocaine subcutaneously, a 22-gauge spinal needle was introduced under tunnel vision of the fluoroscope at the junction of the superior articular process with RIGHT L5 transverse process, junction of the superior articular process with the RIGHT L4 transverse process. Negative CSF, negative blood, negative paresthesia. After needle position confirmation by AP and crosstable lateral view, after negative aspiration, half milliliters of solution were injected at each point. Total 1- 1/2 mL of solution was injected on the right side which consists of 0.5% ropivacaine. In exactly same way, LEFT sided injections were done at the following 3 points. Junction of the superior articular process with left ala of the sacrum, junction of the superior articular process with the left L5 transverse process, junction of the superior articular process with left L4 transverse process using 0.5 mL of solution at each point. Total 1-1/2 mL of solution was injected on the left side which consists of 0.5% ropivacaine . Spinal needles were taken out and bandages were applied. Disposition. Patient tolerated the procedure well. No complication. Discharged home in stable condition
[2024-02-28 14:25] VITALS: BP 142/74; PULSE 76
== END 2024-02-28 14:25 ==
LOC: ORPAIN 12:03
PROVIDERS: ATTEND Pain Medicine Interventional Pain Medicine
CPT/HCPCS: 99152; 99153

== ENCOUNTER → 2024-03-09 | Outpatient (CLI) | payer MEDICARE, OTHER ==
[2024-03-09 13:39] VITALS: BP 131/83; PULSE 88; RESP 16
--- NOTE | 2024-03-11 07:59 | P.PAINPG ---
Objective - Vital Signs Vital signs: Vital Signs Temp Pulse 88 03/09/24 13:35 Resp 16 03/09/24 13:35 BP 131/83 03/09/24 13:35 Pulse Ox 93 L 03/09/24 13:35 FiO2 Intake & Output 03/08/24 03/09/24 03/09/24 18:59 06:59 18:59 Weight 113.398 kg PQRS Measure Charge Sheet Mode of Arrival: Ambulatory Comment: HISTORY OF PRESENT ILLNESS: A 68 yr old female w at side presents today w severe and chronic secondary to radiculopathy, spondylosis and facet arthropathy without myelopathy for evaluation s/p BL MBB L4-L5/ L5-S1 #1. Pt states she experienced 80% pain relief x 2 days s/p procedure. Pt states pain level is provoked at 8 /10 in intensity, constant, localized in the lower lumbar spine, predominantly axial, sharp in character without shooting pain. Pain is provoked by standing/ walking for periods > 20 min. Pain is alleviated by PT x 6 wks which ended in Aug 2022, physician guided home stretches 4 times weekly since Aug 2022, medications, repositioning and rest . Interventional procedures include BL MBB L4-L5/ L5-S1 x1 Medications include Celebrex, Tyl REVIEW OF ORGAN SYSTEMS: CONSTITUTIONAL: No fevers or chills. No recent weight loss. NEUROLOGICAL: + numbness and tingling along the distal extremities. No seizure disorders or headaches. MUSCULOSKELETAL: + pain PSYCHIATRIC: Denies current depression or suicidal thoughts. Physical Examinations : Constitutional : Cooperative , not in acute distress . Neurologic : Cranial nerve II to XII intact. No focal neurological deficits. Psychiatric : alert & oriented x 3. Matching mood & appropriate affect. Judgment & insight intact. Musculoskeletal : Cervical Spine Motor strength in the deltoid and biceps: Normal right side. Normal Left side Motor strength biceps and the wrist extensors: Normal right side . Normal left side Motor strength in the triceps muscle: Normal right side. Normal left side Deep tendon reflexes: Normal at the biceps. Normal at Brachioradialis. Normal at triceps Vertebral body tenderness to deep palpation over Cervical facet loading test: positive bilaterally Spurling test: positive bilaterally Neck distraction test: positive bilaterally Pinky sign: positive bilaterally Lumbar spine Motor strength lower extremities ,thigh and legs 5/5 Right side , 5/5 Left side Deep tendon reflexes : Normal Knee Jerk. Normal Ankle Jerk Vertebral body tenderness over Maldonado Test positive Lumbar facet Loading Test: positive Right / positive Left L4-L5, L5-S1 Range of motion of the lumbar spine Flexion 30 degrees, extension 10 degrees Straight Leg Raise test: Left/ Right positive at degrees Timi test: positive right / positive left. Severe tenderness over the Sacroiliac joint on the Right / Left sides Gaenslen test: positive bilaterally Seated flexion test: positive bilaterally. Sacral spine : Severe tenderness over the Sacroiliac joint: right side / left side Range of motion: Flexion of the lumbar spine <60 degrees Range of motion: Extension of the lumbar spine <20 degrees Gaenslen's Test positive Timi test: positive right side / left side Thigh Thrust Test Sacral Thrust Test Imaging: MRI non contrast lumbar spine from 11/29/23 reviewed Assessment/ Plan : Lumbar radiculopathy Recommendation of ERICKA MBB L4-L5/ L5-S1 #2. Risks, benefits of procedure discussed and patient verbalized understanding. Admits to anti- coagulant use or medical history of diabetes. Protocol for discontinuation/ continuation of medications hollie procedure discussed. Minimal anesthesia provided, if clinically indicated, consisting of Versed and Fentanyl. Medication management. Hubbard 7.5/325mg #90 w 1 RF. Use, side effects, adverse reactions, safe storage discussed. Opiate/ narcotic agreement signed 03/09/24. All questions answered. I have spent greater than 30 minutes on patient care today. Dr Benítez was available by phone for the evaluation of this patient. The time was used to review the medical records including relevant urine studies and Prescription history (MAPs), review of the available imaging, evaluation and examination of the patient, coordination of care with the medical staff and if applicable referring physicians, as well as creation of the medical record - Pain Location Lower Back Non-Pharmacological Interventions: Chiropractic Treatment, Heat, Ice Pharmacological Interventions: Epidural, Medication PQRS Narrative: Blood Pressure 131/83 Pain Intensity [Lower Back] 5 Scale Used Numeric (1 - 10) Hx Alcohol Use (MH) No Home Medications: Ambulatory Orders Albuterol Inhaler [Ventolin Hfa Inhaler] 2 puff INHALATION RT-QID PRN 07/11/21 Albuterol Nebulized [Ventolin Nebulized] 2.5 mg INHALATION Q4H PRN 07/11/21 Ascorbic Acid [Vitamin C] 500 mg PO DAILY 07/11/21 Cholecalciferol [Vitamin D3 (25 Mcg = 1000 Iu)] 50 mcg PO DAILY 07/11/21 Cyanocobalamin (Vitamin B-12) [Vitamin B12] 5,000 mcg PO DAILY 07/11/21 Levothyroxine Sodium [Synthroid] 100 mcg PO DAILY 07/11/21 Magnesium Oxide [Mag-Oxide] 200 mg PO HS 07/11/21 Multivitamins, Thera [Multivitamin (formulary)] 1 tab PO DAILY 07/11/21 Pravastatin Sodium [Pravachol] 10 mg PO DAILY 07/11/21 Zinc 50 mg PO DAILY 07/11/21 allopurinoL [Zyloprim] 300 mg PO DAILY 07/11/21 metFORMIN HCL [Glucophage] 500 mg PO DAILY 07/11/21 Furosemide [Lasix] 10 mg PO DAILY 05/18/22 Celecoxib [CeleBREX] 200 mg PO BID PRN 02/25/24 DULoxetine HCL [Cymbalta] 60 mg PO DAILY 02/25/24 Semaglutide [Ozempic] 1 mg SQ TH 02/25/24 oxyBUTYnin chloride [Ditropan] 5 mg PO DAILY 02/25/24 HYDROcodone/APAP 7.5-325MG [Hubbard 7.5-325] 1 tab PO TID PRN 30 Days #90 tab 03/09/24 HYDROcodone/APAP 7.5-325MG [Hubbard 7.5-325] 1 tab PO TID PRN 30 Days #90 tab 03/09/24 Controlled Substance Measures - Controlled Substance Measures Is patient prescribed a controlled substance at discharge?: Yes When asked, does pt state using other controlled substances?: No If prescribed controlled substance>3 days was MAPS reviewed?: Yes If Rx opioid, was Start Talking consent form obtained?: Yes Was information provided regarding opioid addiction?: Yes
== END ==
LOC: PNWHC3 13:00
PROVIDERS: ATTEND Specialist
DX: M47.26 Other spondylosis with radiculopathy, lumbar region (principal); Z88.8 Allergy status to other drugs, medicaments and biological substances; Z88.0 Allergy status to penicillin; Z88.1 Allergy status to other antibiotic agents
CPT/HCPCS: 99211

== ENCOUNTER 2024-04-02 10:01 | Day surgery (SDC) | payer MEDICARE, OTHER ==
[2024-04-02 11:29] VITALS: RESP 18; TEMP 98
[2024-04-02] MEDS: IV FLUID CONTINUATION 1,000 ML IV ONE ×3 (11:39→12:31)
[2024-04-02 11:40] LABS: Glucose,Whole Blood 111 mg/dL (70-110)
[2024-04-02] MEDS: LACTATED RINGERS 1,000 ML IV SCH (11:42)
[2024-04-02] MEDS ORDERED: fentaNYL (PF) 50 MCG/ML 2 ML AMP ONE (12:11)
[2024-04-02] MEDS ORDERED: ROPIVACAINE 5MG/ML 20ML VIAL ONE (12:11)
[2024-04-02] MEDS ORDERED: MIDAZOLAM 2 MG/2 ML VIAL ONE (12:11)
--- NOTE | 2024-04-02 12:25 | P.PCN ---
Date of Procedure: 04/02/24 Procedure(s) Performed: PREOPERATIVE DIAGNOSIS : 1- Lumbar spondylosis with Facet Arthropathy with out myelopathy . 2- Lumber degenerative disc disease POSTOPERATIVE DIAGNOSIS: 1- Lumbar spondylosis with Facet Arthropathy without myelopathy . 2- Lumber degenerative disc disease PROCEDURE: Diagnostic bilateral L3 , L4 , and L5 medial branch block under fluoroscopy guidance(fluoroscopy images available in the radiology Department ) ( To target the facet joint between Bilateral L4-5 , and L5-S1 )#2nd ANESTHESIA:moderate sedation with intravenous Versed 2 mg and Fentanyl 100 mcg.(Patient started 1211, ended at 1221) EBL: Minimal COMPLICATION: None PROCEDURE INDICATION: Chronic low back pain secondary to Facet arthropathy unresponsive to conservative treatment. PROCEDURE DESCRIPTION: the patient was seen and identified in the preop holding area , risks and benefits and possible complications of the procedure and alternative were discussed with the patient, and the patient agreed to proceed with the procedure and signed the consent and vital signs monitored during the procedure and fluoroscopy was used to maximize the benefit and accuracy of the needle placement, and sedation was given to decrease patient anxiety, patient was taken to the procedure room and placed in prone position vital signs monitored in the back prepped with chlorhexidine X3 then under strict sterile technique using a right oblique fluoroscopy ,the junction of the transverse process and the superior articulating process of the right L3 , L4 , and L5 vertebra which corresponding to the fluoroscopy image of the eye of the Franklin dog on the block side for the medial branches and subsequently , after local infiltration of skin and subcu tissuies with Ropivacaine 0.5 % , one mL at each level ,then 22-gauge 5 inches long Quincke-type needles , 3 needle was used , each one of them placed at the junction of the base of the transverse process and the superior articular process at the appropriate level, and the needle was advanced until the periosteum contacted, needle placement confirmed with AP oblique and lateral view and after appropriate needle placement confirmed, and after negative aspiration for heme and CSF and there was no pa resthesia 1-1/2 mL of Ropivacaine 0.5% , then half mL injected at each level after negative aspiration the needle subsequently removed and the same procedure repeated for the left side at left side at L3 , L4 and L5 levels. At the end of the procedure and the needles removed and a bandage applied after the skin was cleaned the cleaning solution patient taken to recovery room in stable condition and monitors in the recovery room for 20-30 minutes and discharged home in stable condition after discharge criteria met and patient will follow up with the Dr. Palacios for evaluation for possible section of the medial branches versus RFA of the medial branches
--- NOTE | 2024-04-02 12:35 | FL ---
Intraoperative/procedural fluoroscopic services were provided for lumbar pain management. Total fluor oscopy time is 8.3 seconds with a total of 5 submitted images to PACS. Total DAP [id number] mGym2. Plea se see the operative note for further details. [facility], , 04/02/2024 12:33 PM
[2024-04-02 12:47] VITALS: BP 137/67; PULSE 62
[2024-04-02] MEDS ORDERED: LACTATED RINGERS 1,000 ML IV SCH (13:00)
== END 2024-04-02 12:58 | disposition home or self-care (01) ==
LOC: ORPAIN 10:01
PROVIDERS: ATTEND Specialist
DX: M47.816 Spondylosis without myelopathy or radiculopathy, lumbar region (principal); M51.360 Other intervertebral disc degeneration, lumbar region with discogenic back pain only; G89.29 Other chronic pain
CPT/HCPCS: 64493; 64494; J2250; J3010; J2795

== ENCOUNTER → 2024-07-07 | Outpatient (CLI) | payer MEDICARE, OTHER | END | disposition home or self-care (01) | LOC: LABWHC1 12:09 | PROVIDERS: ATTEND Orthopaedic Surgery | DX: Z01.812 Encounter for preprocedural laboratory examination (principal); M51.26 Other intervertebral disc displacement, lumbar region; Z22.322 Carrier or suspected carrier of Methicillin resistant Staphylococcus aureus | CPT/HCPCS: 86850; 86900; 86901; 87070 ==

== ENCOUNTER 2024-07-13 10:51 | Day surgery (SDC) | payer MEDICARE, OTHER ==
--- NOTE | 2024-07-12 12:09 | P.HPOR ---
History of Present Illness H&P Date: 07/08/24 .D:Date: 07/08/24 : 05:12pm .T:Title: *PRE-OP H1 [facility] [address] [place] [id number]| PROVIDER: AMANUEL WOOD DO CLINICAL SUMMARY: *Ms. Soni is a 69-year-old female with a significant history of lumbar pain (VAS 6/10) secondary to L4-5 Grade I spondylolisthesis with spondylosis and stenosis, presenting with bilateral lower extremity radiculopathy, more pronounced on the left side. She reports persistent ache-like low back pain radiating to bilateral lower extremities with sharp, throbbing qualities, particularly along the lateral and anterior aspect of the left thigh terminating at the knee. Conservative management including physical therapy, activity modification, home exercise program, heat/ice therapy, and pharmacologic interventions (Tylenol, Aleve, Flexeril, Mobic, Celebrex) have provided minimal transient relief. Recent lumbar epidural steroid injections administered at [facility] yielded no significant improvement. After thorough discussion of risks, benefits, and alternatives, patient has elected to proceed with L4-5 MINIMALLY INVASIVE POSTEROLATERAL AND INTERBODY FUSION WITH DECOMPRESSION. Pre-operative clearance has been requested from PCP, and patient has been provided with comprehensive educational materials regarding the planned procedure. Patient will be scheduled for surgery pending medical clearance with anticipation of outpatient status under general endotracheal anesthesia in prone position with left-sided approach. DEMOGRAPHICS: Age: 69 year Height: 5'9" Weight: 260 lbs BP:130/70 BMI: 38.39 kg/m2 Occupation: *Retired CC: *lumbar pain VAS: * 6 HISTORY: Ms. Soni presents to the office today, 07/08/24, for *a pre-operative appointment preceding her L4-5 MINIMALLY INVASIVE POSTEROLATERAL AND INTERBODY FUSION WITH DECOMPRESSION. She states her pain has continued to persist and she is becoming more and more debilitated. The patient reports a continued ache-like low back pain that radiates down into the bilateral lower extremities with a sharp, throbbing quality. She states her left leg is more symptomatic than her right. She notes her left leg pain persists mainly around the lateral and anterior aspect of the thigh and terminates at the knee. She reports intermittent right hip and coccygeal pain. She states her current symptoms worsen after prolonged standing or walking. She reports severe sleep disturbances related to her ongoing pain and associated symptoms. She has t rialed all conservative measures listed below with only mild, temporary relief. She is currently taking Celebrex without resolution of her symptoms. Has tried OTC and Rx medications for relief of her current symptoms. * Patient denies any f/c/sob/cp, perineal numbness or tingling, bowel, or bladder incontinence/retention. * The patients past social, medical, family, surgical history, as well as review of systems, have been reviewed. Please refer to the History and Physical form that has been scanned into our electronic medical record system. * 16 points review of systems completed and as stated in HPI, all other systems reviewed are negative. PAST TREATMENTS: PAST IMAGING: - Yes TRAUMA RELATED: - No (Chronic) WORK RELATED: - No PT IN LAST 6 MONTHS: - Yes; no relief Last visit 08/22/22 she was DC from therapy as it was not helping her PHYSICIAN DIRECTED HOME EXERCISE PROGRAM: - Yes; no relief ACTIVITY MODIFICAITON: - Yes; unable to walk long distances, limits all BLPPT movements MEDICATIONS: -Tylenol, Aleve, Flexeril, Mobic ALTERNATIVE INTERVENTIONS (CHIROPRACTIC, ACCUPUNCTURE, MASSAGE, RICE): - Yes (ome heat/ice therapies & rest); mild, temporary relief BRACING: - No INJECTIONS (ALBARO, TF, RFA): - Yes; recent lumbar ESIs at [facility] (no relief) MEDICAL HISTORY: Past Medical History: REVIEWED STATED IN CHART Past Surgical History: REVIEWED STATED IN CHART Social History: REVIEWED STATED IN CHART SMOKING: ETOH: None SUBSTANCES: None Family History: REVIEWED STATED IN CHART Current Medications: P1Rx: allopurinoL 300 mg tablet Ref: 0 Rx: levothyroxine 100 mcg capsule Ref: 0 Rx: metFORMIN 500 mg tablet Ref: 0 Rx: pravastatin 10 mg tablet Ref: 0 Rx: celecoxib 100 mg capsule Ref: 0 Rx: Ozempic Ref: 0 Rx: Vitamin C Ref: 0 Rx: zinc , Ref: 0 Rx: CeleBREX 200 mg capsule Ref: 0 Rx: predniSONE 10 mg tablet Ref: 0 PHYSICAL EXAM: General: AOX3, NAD, Well hydrate, well nourished HEENT: No lumps or masses Extremities: No color changes, no pooling INTEGUMENT: Appearance:Normal color and turgor Surgical Incisions: None Hairy Patches: ABSENT Dorsal Skin Dimples: Normal [employer] spots: ABSENT PALPATION: TTP Midline: NO Paracervical: NO Parathoracic: NO Paralumbar: YES SIJ TESTING: TTP b/l Mild * [place] Finger: YES b/l * FABER4: POS RIGHT, NEG LEFT * Compression: NEG * Distraction: NEG * Thigh thrust: POS RIGHT * Hip thrust: POS RIGHT POSTURAL BALANCE: Coronal: BALANCED Sagittal: BALANCED Shoulder height: LEVEL Pelvic Girdle: LEVEL ROM AND APPEARANCE: Neck: UNRESTRICTED Lumbar: RESTRICTED Shoulders: Symmetrical Hips: Symmetrical Knees: Symmetrical Hands: Symmetrical Feet: Symmetrical VASCULAR STATUS: PALPABLE PULSES B/L UE AND LE 2/4 RAD/ULNAR/DP/PT Edema: NONE NEUROLOGICAL EXAMINATION: Mental Status: Awake, alert, fully oriented with normal attention, concentration, and memory. Fluent appropriate speech. CRANIAL NERVES: I: Olfactory not assessed. II: Visual acuity normal, no visual field deficit noted with confrontation. III, IV: Normal pupillary reflexes & intact extraocular movements without nystagmus. V, : Intact symmetrical facial sensation. VII: Intact symmetrical facial motor movement: Hearing intact. IX, X: Intact gag, swallow, & normal voice. XI: Sternocleidomastoid, trapezius function intact. XII: Tongue midline with normal movements. TENSIONING: L'HERMITTE'S SIGN NEG SPURLUNG'S SIGN NEG CUBITAL COMPRESSION NEG TINELS AT WRIST POS RIGHT SLR/CROSSED SLR NEG MOTOR EXAM (0-5/5, NT) Muscle appearance: Symmetrical, without signs of atrophy or dystrophy UPPER EXTREMITY RIGHT LEFT Shoulder Abduction 5 5 Biceps 5 5 Triceps 5 5 Wrist Extension 5 5 Hand Intrinsics 5 5 Head Of Quality 5 5 LOWER EXTREMITY RIGHT LEFT Hip Flexion 4+ 4+ Knee Extension 5 5 Knee Flexion 5 5 Dorsiflexion 5 4+ Plantarflexion 4 4+ EHL 5 5 FHL 5 5 REFLEXES (0-4/2, NT): RIGHT LEFT Bicep 2 2 Brachioradialis 2 2 Triceps 2 2 Patellar 2 2 Achilles 1 2 PATHOLOGICAL REFLEXES: RIGHT LEFT YU'S ABSENT ABSENT CLONUS ABSENT ABSENT BABINSKI ABSENT ABSENT RECTAL TONE: INTACT/NT SENSATION (0-4, NT): Sensation intact to LT and Pain * C5-T1 distribution BUE * L2-S2 distribution BLE *Exceptions below* DERMATOMAL DEFICIT/RADICULAR PATTERN: L5-S1 b/l GAIT AND FUNCTIONAL EVALUATION: AMBULATORY AID Cane sometimes ROMBERG'S TEST INTACT HAND AND FINGER DEXTERITY INTACT YES DYSDIADOCHOKINESIA EXAM NEG B/L YES TOE/HEEL WALK INTACT WITH GOOD BALANCE NO SQUAT AND RISE W/O ASSISTANCE TO 60 DEG KNEE FLEXION NO SINGLE LEG STANCE Not ABLE TRENDELENBURG NEG IMAGING: XRAY: Date: 11/20/23 Location: [facility] Region: Lumbar Views: AP/LAT/FLEX/EXT/OB/AP pelvis FINDINGS: images reviewed with patient. This demonstrates a L4 5 grade 1 spondylolisthesis with marginal stability on flexion-extension films. There is spondylosis at L4 5 as well as disc collapse and facet arthrosis. There is severe spondylosis at L2-L3 with severe disc collapse as well as osteophytosis facet arthrosis which is severe and foraminal stenosis. Lumbar lordosis is decreased secondary to the spondylotic collapse overall. No acute fractures noted at this time. MRI Date: 11/29/23 Location: [facility] Region:Lumbar Contrast:N FINDINGS: Alignment: The lumbar vertebral bodies have preserved heights with grade 1 anterolisthesis of L4 on L5. Cord: The conus medullaris and the distal spinal cord appear unremarkable with regards to their signal intensity and morphology. Bones/Discs: Degeneration changes throughout the spine with osteophyte formation and facet joint arthropathy. Multilevel disc desiccation is present. T12-L1: No evidence of significant spinal canal stenosis or neural foraminal stenosis. L1- L2: No evidence of significant spinal canal stenosis or neural foraminal stenosis. L2-L3: Disc bulge and facet joint arthropathy result in moderate to severe spinal canal and moderate bilateral neural foraminal stenosis. L3-L4: Disc bulge and facet joint arthropathy result in mild spinal canal and moderate to severe bilateral neural foraminal stenosis. L4-L5: Disc uncovering from grade 1 anterolisthesis and facet joint arthropathy with mild spinal canal stenosis and moderate to severe right and severe left bilateral neural foraminal stenosis. L5-S1: The disc has a rounded posterior morphology without significant spinal canal stenosis. Facet joint arthropathy with moderate right and severe l eft lizet ral foraminal stenosis. Trace bilateral is facet joint effusions. No significant spinal canal or neural foraminal stenosis in the remainder of the visualized levels. IMPRESSION: Overall findings similar to prior in 2022 given difference in slice selection and technique. 1. Disc bulge with moderate to severe spinal canal stenosis 2. Moderate disc degeneration with associated osteoarthritic changes. Moderate right and severe left neural foraminal stenosis at L5-S1, moderate to severe right and severe left at L4-L5 moderate to severe bilateral L3-L4 neural foraminal stenosis. 3. Grade 1 anterolisthesis of and L4 and L5. IMPRESSION: It was my pleasure to have seen and examined Maite. I reviewed the patient's clinical syndrome, physical findings, and imaging studies during the appointment today. It is my impression that the patient has a diagnosis of. 1.L4-5 Grade I spondylolisthesis with spondylosis and stenosis 2.Lower extremity radiculopathy 3.Low back pain PLAN: DISCUSSION: -I have discussed with the patient their clinical signs and symptoms, imaging, and treatment options. We have discussed risks, benefits, potential outcomes and natural course as pertains top their issues. The patient understands and would like to proceed as follows below: SURGICAL RECOMMENDATION -L4-5 MINIMALLY INVASIVE POSTEROLATERAL AND INTERBODY FUSION WITH DECOMPRESSION PRONE LEFT OUTPT GETA THERAPIES -Cont. with home exercises and home PT exercises as able -Cont. with Heat/Ice as warranted -Cont. with supplementation Vit D, Vit C, Ca2+, High protein diet -OK for massage or other alternative treatment modalities as able. If it exacerbates your sx do not continue ACTIVITY -NO LIFTING BENDING TWISTING PUSHING PULLING GREATER THAN -20lbs -Recommend walking up to 30 min 2x daily on a flat easy surface with good support. MEDICATIONS -Take as directed -Cont. home medications as directed by your PCP. Check with your PCP for any medication interactions or issues if needed. IMAGING -N/A INJECTIONS -N/A Spine Surgery Risk Review Ms. Soni is presenting for evaluation of lumbar pain. It was my pleasure to have seen and examined Ms. Soni. In our visit today we have had a chance to go over subjective complaints, physical examination findings and treatments including the natural course history without intervention and various interventional options. The patients imaging demonstrates: XRAY: Date: 11/20/23 Location: [facility] Region: Lumbar Views: AP/LAT/FLEX/EXT/OB/AP pelvis FINDINGS: images reviewed with patient. This demonstrates a L4 5 grade 1 spondylolisthesis with marginal stability on flexion-extension films. There is spondylosis at L4 5 as well as disc collapse and facet arthrosis. There is severe spondylosis at L2-L3 with severe disc collapse as well as osteophytosis facet arthrosis which is severe and foraminal stenosis. Lumbar lordosis is decreased secondary to the spondylotic collapse overall. No acute fractures no jerry at this time. MRI Date: 11/29/23 Location: [facility] Region:Lumbar Contrast:N FINDINGS: Alignment: The lumbar vertebral bodies have preserved heights with grade 1 anterolisthesis of L4 on L5. Cord: The conus medullaris and the distal spinal cord appear unremarkable with regards to their signal intensity and morphology. Bones/Discs: Degeneration changes throughout the spine with osteophyte formation and facet joint arthropathy. Multilevel disc desiccation is present. T12-L1: No evidence of significant spinal canal stenosis or neural foraminal stenosis. L1- L2: No evidence of significant spinal canal stenosis or neural foraminal stenosis. L2-L3: Disc bulge and facet joint arthropathy result in moderate to severe spinal canal and moderate bilateral neural foraminal stenosis. L3-L4: Disc bulge and facet joint arthropathy result in mild spinal canal and moderate to severe bilateral neural foraminal stenosis. L4-L5: Disc uncovering from grade 1 anterolisthesis and facet joint arthropathy with mild spinal canal stenosis and moderate to severe right and severe left bilateral neural foraminal stenosis. L5-S1: The disc has a rounded posterior morphology without significant spinal canal stenosis. Facet joint arthropathy with moderate right and severe left lizet ral foraminal stenosis. Trace bilateral is facet joint effusions. No significant spinal canal or neural foraminal stenosis in the remainder of the visualized levels. IMPRESSION: Overall findings similar to prior in 2022 given difference in slice selection and technique. 1. Disc bulge with moderate to severe spinal canal stenosis 2. Moderate disc degeneration with associated osteoarthritic changes. Moderate right and severe left neural foraminal stenosis at L5-S1, moderate to severe right and severe left at L4-L5 moderate to severe bilateral L3-L4 neural foraminal stenosis. 3. Grade 1 anterolisthesis of and L4 and L5. On physical exam, Ms. Soni demonstrates: She states her pain has continued to persist and she is becoming more and more debilitated. The patient reports a continued ache-like low back pain that radiates down into the bilateral lower extremities with a sharp, throbbing quality. She states her left leg is more symptomatic than her right. She notes her left leg pain persists mainly around the lateral and anterior aspect of the thigh and terminates at the knee. She reports intermittent right hip and coccygeal pain. She states her current symptoms worsen after prolonged standing or walking. She reports severe sleep disturbances related to her ongoing pain and associated symptoms. She has trialed all conservative measures listed below with only mild, temporary relief. She is currently taking Celebrex without resolution of her symptoms. Has tried OTC and Rx medications for relief of her current symptoms. I have explained to the patient that as their condition progresses it will cause further neurological deficits and eventual paralysis. Based on the patients imaging, physical exam, and the rapid progression and disabling nature of their symptoms, at this time I recommend surgery in the form of a: L4-5 LA TLIF LEFT. I discussed the risk and benefits of this procedure at length with Silvino Zachariah. The patient agreed to considered pursuing the procedure abovementioned. Prior to surgery, she should follow up with her PCP (Cardio, ID, IM etc) for clearance. Questions were invited and answered, and the patient wishes to proceed as outlined below. Currently, I am recommendin.L4-5 MINIMALLY INVASIVE POSTEROLATERAL AND INTERBODY FUSION WITH DECOMPRESSION 2.Follow up with PCP for surgical clearance 3.Review of surgical risks and benefits as well as an educational packet on the proposed surgical procedure. Risks: All surgical procedures come with inherent risks, including those related to positioning, anesthesia, intraoperative findings, and postoperative complications. It is important to understand that surgery does not come with any guarantee of a successful outcome as complications and adverse events are always possible. The patient was given a handout in office today discussing the surgical procedure and risks associated with the intervention, both of which were discussed with the patient. These risks include but are not limited to the following: * Experiencing same, different or even worse symptoms in back, neck, arms, or legs compared to before surgery. Requiring further surgery or other forms of treatment presently or at some time in the future at same or other levels of the intended spine surgery. On an extreme but fortunately relatively rare basis severe complication such as blindness, stroke, heart attack, temporary and/or permanent nerve injury, paralysis, coma, or may occur, sometimes without known expl anation. Surgical complications may include but are not limited to risk of infection, fluid accumulation in the surgical dissection site, including a seroma or hematoma, that requires additional surgery, wound drainage, bleeding, new numbness or weakness, vision changes/loss, spinal fluid leakage, non-healing and/or infected incision, headaches, difficulty or inability to swallow, hoarseness, hemopneumothorax, pneumothorax, impotence, retrograde ejaculation, vaginal dryness; injury to nerves, spinal cord, blood vessels, lymphatics or other vital organs (i.e., bowel injury, injury to the great vessels); heterotopic bone formation; complications related to the hardware such as screws, rods, cages including misplaced hardware, device failure, instrumentation at the wrong spine level, hardware fracture/breakage, or hardware loosening; vertebral failure of the spinal column above or below the newly placed hardware; retained surgical instrumentations or devices and the need for further surgery. * Medical risks of the planned spine surgery include but are not limited to generalized Infections to the whole body or local areas outside of the surgical site (sepsis), heart attack, bleeding, anaphylaxis, meningitis, seizure, epilepsy, hearing loss, burn bustamante, laceration of the head or other areas of the body, bruising, hypersensitivity of the skin, bladder over distension; allergic reaction; shoulder injury related to positioning; fat, blood and air clots to other areas of the body like heart, lungs, brain; failure of internal organs such as lungs, kidneys, liver and excessive bleeding. If blood transfusions are necessary, note that transfusions may cause intolerance reactions such as anaphylaxis or other complex reactions. Despite best efforts, the results of spine surgery might not heal in terms of bone, soft tissues such as skin, fascia, ligaments, and joints. Additionally, in order to achieve best possible results, spine surgery may be carried out beyond the initially planned levels and involve decompression, fusion including insertion of hardware at levels other than the original intended area of surgical interest change some portions of the procedure in order to ensure the best possible outcomes. With spine surgery and spinal fusion, there are different off label uses of instrumentation (devices, implants and hardware) as well as biological subs tances (bone morphogenic proteins, demineralized bone matrix) as well as using extra bone from allograft sources (i.e. cadaver bone) or autograft (iliac crest bone, ribs, or the spine itself). The patient has been given information about these practices and their inherent risks and benefits. [facility] is an educational center that serves as a training facility for neurosurgical and orthopedic [employer]IEF and Nursing students. Physician assistants are medically trained surgical providers who function in the outpatient, inpatient, and operating room setting under the direct supervision of the attending surgeon. [facility] has multiple operating rooms with single and overlapping rooms running daily. They currently function under the required guidelines as produced by the [facility] Finance Committee with regards to the overlapping rooms and will continue to comply with changes to this policy as they occur. The requirements include and are complied with as follows: (1) the critical portions of the overlapping rooms will not occur at the same time, (2) the attending physician will be physically present during the critical portions of the procedure and immediately available during the entire case, and (3) a back-up attending is designated should the primary attending not be immediately available. The patient has had a chance to review all the listed information, has been given print outs detailing this information, and has had all his/her questions answered to their satisfaction. It was my pleasure to have seen and examined Ms. Soni. In our visit today we have had a chance to go over my understanding of our patient's current condition, the natural course history without intervention and various interventional options. Questions were invited and answered, and the patient wishes to proceed as outlined above. I have seen and examined the patient for 25 minutes and we have spent more than 50% of the time in repeat and detailed counseling about the patient's condition, its natural course history with out and as much as can be predicted with surgery and re-review of various surgical treatment options. In conclusion, Ms. Soni requested we proceed with the above suggested surgery and are willing to accept risks and limitations of the suggested surgery as nature of the disease process and our best attempts at treatment for the cond ition. Medical Necessity Note: Ms. Soni, a 69-year-old female, presents with persistent lumbar pain (VAS 5/10) and bilateral lower extremity radiculopathy, more severe on the left side, that has been resistant to conservative management. The patient demonstrates progressive neurological symptoms with bilateral L5-S1 dermatomal deficits, restricted lumbar ROM, and significant functional limitations requiring occasional use of a cane for ambulation. Imaging studies reveal L4-5 Grade I spondylolisthesis with spondylosis, moderate to severe spinal canal stenosis, and significant neural foraminal stenosis at multiple levels. Conservative treatments including physical therapy, home exercises, medications (including Celebrex), and facet block injections have failed to provide meaningful relief. Given the progressive nature of symptoms, failed conservative measures, and risk of further neurological deterioration, surgical intervention is deemed medically necessary. Surgical Rationale Note: Based on comprehensive evaluation including imaging studies showing L4-5 Grade I spondylolisthesis with marginal stability on flexion-extension films, and multiple level stenosis most severe at L4-5 with moderate to severe right and severe left neural foraminal stenosis, surgical intervention is warranted. The patient has exhausted conservative measures including physical therapy (discontinued due to lack of improvement), medication management, and injection therapy without sustainable relief. The recommended L4-5 minimally invasive posterolateral and interbody fusion with decompressionis specifically chosen to address both the mechanical instability and neurological compression, aiming to prevent further progression of symptoms and potential neurological deterioration. The surgical approach is tailored to provide adequate decompression while maintaining spinal stability through fusion, with the goal of improving the patient's quality of life and functional status. FOLLOW UP: *POST-OP PLAN AT NEXT VISIT: * RECHECK PATIENT EDUCATION: Medications Reviewed: YES In our visit today Ms. Soni and I have had a chance to go over my understanding of the patient's current condition, the natural course history without intervention and various interventional options. Questions were invited and answered, and the patient wishes to proceed as outlined above. I will be sure to keep you updated after Ms. Soni returns here for further follow-up. Thank you again for your referral. Please do not hesitate to contact me if you have any further questions. Signed and authenticated by: Amanuel Hurtado [facility] [address] [address] . This message is confidential, intended only for the named recipient(s) and may contain information that is privileged or exempt from disclosure under applicable law. If you are not the intended recipient(s), you are notified that the dissemination, distribution or copying of this information is prohibited. If you received this message in error, please notify the sender then delete this message. Past Medical History Past Medical History: Asthma, Cancer, Diabetes Mellitus, Hyperlipidemia, Hypertension, Osteoarthritis (OA), Sleep Apnea/CPAP/BIPAP, Thyroid Disorder Additional Past Medical History / Comment(s): USES CPAP MACHINE, SKIN CANCER(squamous and basal cell), BLE NEUROPATHY,diverticulitis,chronic back pain, Type II DM, hypothyroidism History of Any Multi-Drug Resistant Organisms: None Reported Past Surgical History: Hysterectomy, Tonsillectomy Additional Past Surgical History / Comment(s): RK EYE SURGERY -CONCHA EYELID SURGERY X2 , BILAT.SHOULDER ARTHROSCOPY, MOHS SX RT LEG, COLONOSCOPY, BILAT TEAR DUCT STENTS 05/17/22 Past Anesthesia/Blood Transfusion Reactions: Family History of Problems w/ Anesthesia, Motion Sickness Additional Past Anesthesia/Blood Transfusion Reaction / Comment(s): Daughters have PONV. Smoking Status: Former smoker - Past Family History Father Family Medical History: Cancer Additional Family Medical History / Comment(s): lung cancer Brother(s) Family Medical History: Cancer Additional Family Medical History / Comment(s): COLON CANCER Sister(s) Family Medical History: Cancer Additional Family Medical History / Comment(s): BREAST CANCER Mother Additional Family Medical History / Comment(s): ""leaky heart valve" Medications and Allergies Home Medications Medication Instructions Recorded Confirmed Type Albuterol Inhaler [Ventolin Hfa 2 puff INHALATION RT-QID PRN 07/11/21 07/08/24 History Inhaler] Albuterol Nebulized [Ventolin 2.5 mg INHALATION Q4H PRN 07/11/21 07/08/24 History Nebulized] Ascorbic Acid [Vitamin C] 500 mg PO DAILY 07/11/21 07/08/24 History Cholecalciferol [Vitamin D3 (25 50 mcg PO DAILY 07/11/21 07/08/24 History Mcg = 1000 Iu)] Cyanocobalamin (Vitamin B-12) 5,000 mcg PO DAILY 07/11/21 07/08/24 History [Vitamin B12] Levothyroxine Sodium [Synthroid] 100 mcg PO DAILY 07/11/21 07/08/24 History Multivitamins, Thera [Multivitamin 1 tab PO DAILY 07/11/21 07/08/24 History (formulary)] Pravastatin Sodium [Pravachol] 20 mg PO DAILY 07/11/21 07/08/24 History Zinc 50 mg PO DAILY 07/11/21 07/08/24 History allopurinoL [Zyloprim] 300 mg PO DAILY 07/11/21 07/08/24 History metFORMIN HCL [Glucophage] 500 mg PO DAILY 07/11/21 07/08/24 History Furosemide [Lasix] 20 mg PO DAILY 05/18/22 07/08/24 History Celecoxib [CeleBREX] 200 mg PO DAILY 02/25/24 07/08/24 History Semaglutide [Ozempic] 1 mg SQ TH 02/25/24 07/08/24 History oxyBUTYnin chloride [Ditropan] 5 mg PO DAILY 02/25/24 07/08/24 History HYDROcodone/APAP 7.5-325MG [[place] 1 tab PO TID PRN 30 Days #90 tab 03/09/24 07/08/24 Rx 7.5-325] Spironolactone [Aldactone] 25 mg PO DAILY 04/01/24 07/08/24 History Allergies Allergy/AdvReac Type Severity Reaction Status Date / Time amoxicillin Allergy Rash/Hives Verified 07/08/24 14:30 cefaclor [From Ceclor] Allergy Rash/Hives Verified 07/08/24 14:30 gabapentin Allergy Rash/Hives Verified 07/08/24 14:30 levofloxacin [From Levaquin] Allergy Rash/Hives Verified 07/08/24 14:30 lomefloxacin [From Maxaquin] Allergy Rash/Hives Verified 07/08/24 14:30 monosodium glutamate [MSG] Allergy Rash/Hives Verified 07/08/24 14:30 Penicillins Allergy Rash/Hives Verified 07/08/24 14:30 potassium chloride Allergy Rash/Hives Verified 07/08/24 14:30 bounce fabric sheets Allergy Rash/Hives Uncoded 07/08/24 14:30 Physical Examination Osteopathic Statement: *. No significant issues noted on an osteopathic structural exam other than those noted in the History and Physical/Consult.
[~2024-07-13 10:51] MED LIST changes: -LACTATED RINGERS 1,000 ML IV SCH; +TRANEXAMIC 1,000 MG/100ML-NACL 1,000 MG in SALINE 1 100ML.BAG IVPB PRN
[2024-07-13] MEDS: IV FLUID CONTINUATION 1,000 ML IV ONE ×6 (11:07→13:44)
[2024-07-13 11:47] LABS: Glucose,Whole Blood 144 mg/dL (70-110)
[2024-07-13] MEDS: ACETAMINOPHEN TAB 500 MG TAB PO PRN (12:01)
[2024-07-13] MEDS: DEXAMETHASONE SOD PHOSPHATE 4 MG/ML 1 ML VIAL IV ONE (12:02)
[2024-07-13] MEDS: ONDANSETRON 4 MG/2 ML VIAL IVP PRN (12:02)
[2024-07-13] MEDS ORDERED: TRANEXAMIC 1,000 MG/100ML-NACL PREMIX BAG ONE (13:42)
[2024-07-13] MEDS ORDERED: PROPOFOL 10 MG/ML 20 ML VIAL IV ONE (13:42)
[2024-07-13] MEDS ORDERED: MIDAZOLAM 2 MG/2 ML VIAL ONE (13:42)
[2024-07-13] MEDS ORDERED: ROCURONIUM 10 MG/ML (5 ML VIAL) IV ONE (13:42)
[2024-07-13] MEDS ORDERED: LIDOCAINE 1% INJ 10MG/ML (20 ML MDV) ONE (13:42)
[2024-07-13] MEDS ORDERED: KETAMINE HCL IN 0.9 % NACL 50 MG/5 ML SYRINGE ONE (13:42)
[2024-07-13] MEDS ORDERED: PHENYLEPHRINE 10 MG/ML VIAL ONE (13:42)
[2024-07-13] MEDS ORDERED: SUCCINYLCHOLINE CHLORIDE 200 MG/10 ML VIAL IV ONE (13:42)
[2024-07-13] MEDS ORDERED: NEOSTIGMINE 1 MG/ML 10 ML VIAL ONE (13:42)
[2024-07-13] MEDS ORDERED: GLYCOPYRROLATE 0.2 MG/ML 2 ML VIAL ONE (13:42)
[2024-07-13] MEDS ORDERED: fentaNYL (PF) 50 MCG/ML 2 ML AMP ONE (13:42)
[2024-07-13] MEDS: THROMBIN (BOVINE) 5,000 UNIT VIAL TOPICAL ONE (14:19)
[2024-07-13] MEDS: BUPIVACAINE (PF) 0.5% 30 ML VIAL SQ ONE (15:53)
[2024-07-13] MEDS: LIDOCAINE 2%-EPI 1:100,000 20 ML VIAL SQ ONE (15:53)
--- NOTE | 2024-07-13 16:12 | XR ---
EXAMINATION TYPE: XR lumbar spine 2 or 3V, FL guidance operating room Intraoperative/procedural fluor oscopic services were provided. CLINICAL INDICATION:Female, 69 years old with history of LUMBAR FUSION; , [facility] FINDINGS: Postsurgical changes with bilateral pedicular screws and rods and disc spaces are involving L4-L5. No submitted radiographic evidence for complication. Total fluoroscopy time is 46 seconds. DAP: 837.34 cGycm2 Please see the operative/procedural note for further details. [facility], , 07/13/2024 4:09 PM
[2024-07-13] MEDS ORDERED: SENNOSIDES-DOCUSATE SODIUM 1 EACH TAB PO PRN (16:20)
[2024-07-13] MEDS ORDERED: HYDROcodone/APAP 5-325MG 1 EACH TAB PO PRN (16:20)
[2024-07-13] MEDS ORDERED: HYDROmorphone 0.5 MG/0.5 ML SYRINGE IVP PRN (16:20)
[2024-07-13] MEDS ORDERED: MAGNESIUM HYDROXIDE 2,400 MG/30 ML CUP PO PRN (16:20)
[2024-07-13] MEDS ORDERED: ONDANSETRON 4 MG/2 ML VIAL IVP PRN (16:20)
--- NOTE | 2024-07-13 16:33 | P.OP ---
Date of Procedure: 07/13/24 Preoperative Diagnosis: 1.L4-5 Grade I spondylolisthesis with spondylosis and stenosis 2.Lower extremity radiculopathy 3.Low back pain 4. LE WEAKNESS Postoperative Diagnosis: 1.L4-5 Grade I spondylolisthesis with spondylosis and stenosis 2.Lower extremity radiculopathy 3.Low back pain 4. LE WEAKNESS Procedure(s) Performed: 1. L4-5 POSTEROLATERAL AND INTERBODY FUSION 2. L4-5 POSTEROLATERAL INSTRUMENTATION 3. L4-5 LAMINECTOMY, FACETECTOMY AND FORAMINOTOMY FOR COMPLETE NEURAL DECOMPRESSION, DEFORMITY CORRECTION AND CAGE PLACEMENT 4. L4-5 INSERTION OF BIOMECHANICAL DEVICE, CAGE, x1 5. USE OF STEPHEN NAVIGATION FOR SCREW PLACEMENT USE OF IONM ALL SCREWS TESTING > 20 mA USE OF IO MICROSCOPE Implants: -STEPHEN EVEREST RODS AND SCREWS -GLOBUS SABLE CAGE, 8 DEG, 9-16, 10mm -MAGNATOS, AUTOGRAFT, ALLOGRAFT, ARTHROCELL, ALLOCELL, CONTOUR Anesthesia: GETA Surgeon: Anibal Palacios Land Surveyor #1: Louie Garcia (WAS PRESENT AND ASSISTED WITH ALL ASPECTS OF THE CASE FROM POSITION TO DRESSING PLACEMENT) Estimated Blood Loss (ml): 75 IV fluids (ml): 1,200 Urine output (ml): 0 Pathology: none sent Condition: stable Disposition: PACU Indications for Procedure: Ms. Soni is a 69-year-old female with a significant history of lumbar pain (VAS 6/10) secondary to L4-5 Grade I spondylolisthesis with spondylosis and stenosis, presenting with bilateral lower extremity radiculopathy, more pronounced on the left side. She reports persistent ache-like low back pain radiating to bilateral lower extremities with sharp, throbbing qualities, particularly along the lateral and anterior aspect of the left thigh terminating at the knee. Conservative management including physical therapy, activity modification, home exercise program, heat/ice therapy, and pharmacologic interventions (Tylenol, Aleve, Flexeril, Mobic, Celebrex) have provided minimal transient relief. Recent lumbar epidural steroid injections administered at [facility] yielded no significant improvement. After thorough discussion of risks, benefits, and alternatives, patient has elected to proceed with L4-5 MINIMALLY INVASIVE POSTEROLATERAL AND INTERBODY FUSION WITH DECOMPRESSION. Pre-operative clearance has been requested from PCP, and patient has been provided with comprehensive educational materials regarding the planned procedure. Patient will be scheduled for surgery pending medical clearance with anticipation of outpatient status under general endotracheal anesthesia in prone position with left-sided approach Description of Procedure: L4-L5 MIS TLIF NÉSTOR The patient was seen and examined in the preoperative area. All preoperative protocols were followed. Informed consent was obtained, risks and benefits of the procedure were discussed at length. Risks including bleeding infection damage to the surrounding tissue and risk of reoperation were discussed with the patient. Risk of anesthesia up to and including was discussed with the patient. These are outlined in the risk review. They were willing to accept these risks and all the risks of surgery. The patient was given a weight-based dose of antibiotics in the form of 2 g Ancef. The patient was seen and evaluated by the anesthesia team who deemed them fit for surgery. The site was marked, the patient was willing to proceed with the procedure. The patient was transferred to the operative suite by the Department of anesthesia. They were then drifted off to sleep by the department anesthesia and GETA was performed. The patient tolerated this well. Once confirmation of lines and ventilation the patient was transferred to a prone Tj table very carefully. All bony prominences including wrists, elbows, axilla, chest, hips, and thighs, and feet were padded very well. Special attention was paid to the genitalia, and these were padded accordingly. SCDs were placed on bilateral lower extremities and were connected. Arms were well padded and placed on arm boards up and out in the 90/90 position. Once in position, again we confirmed good ventilation capabilities and that lines were running appropriately. The patients Lumbar spine was then exposed. 1010s were placed outlining the incision site. Standard alcohol was used to clean the incision site and allowed to dry. C-arm was used to needle localize the pedicles at L4-5 and bio-sharita the patient and confirm level for incision which was marked with a skin marker. Operative briefing was performed with all teams and everyone in agreement to proceed. The patient was then prepped and draped in a normal sterile fashion. Timeout was then performed, and all parties agreed with the procedure to be performed. Skin nicks made and pins placed in the PSIS on the right for the Lifesquare tracker. 3D Zheim spin was then registered and confirmed to be accurate. Navigated jamshidi and drill-guide were then used to target pedicles bilaterally at L4 and L5. Once accessed, wires were placed in their void. This was repeated at L5 bilaterally. Skin incision was then made along these wires and a perfect scalpel was used over the wire to create a path and measure screw length. Screws were then placed over wires on the contralateral side. Once the screw was at the back of the body wire was removed. The screws were confirmed to be in good position on AP and lateral. We then tested screws and they all tested above 20 mA. Attention was then turned to interbody fusion at L4-5. Tubular retractor system was placed at the interspace of L4-5 using a biplanar c arm and navigation. Once in position and dilated up to 26mm tube it was locked to the bed and confirmed in good position. Microscope was then brought in for visualization. Limited myomectomy was performed and laminectomy, complete facetectomy and foraminotomy performed at L4-5 using high speed eleno and Kerrison rongeur. The ligamentum was removed and the dural sac decompressed. Exiting and traversing roots visualized and decompressed. Neural elements were then protected, and disc space accessed with an osteotome. Sequential shaving then done under lateral imaging and complete discectomy performed using paul, pituitary and curettes. Once good bleeding endplates accomplished and good height jehovah's witness with trials, a combination of autograft, allograft and synthetic placed anterior in the disc space. The cage was then selected and impacted into place under lateral imaging. The cage was then expanded restoring height, lordosis and alignment. The cage was backfilled with bone graft through a funnel. The archery instructor was removed and the area inspected. Good cage placement, stable cage and no injuries. Area was irrigated copiously, and meticulous hemostasis achieved. The tubular retractor was then removed under direct visualization. Screws were then selected and placed over the previously placed wires on the ipsilateral side. This was done in the fashion described above. Screws were then tested, and all tested above 20 mA. Shells were then placed on the tabs. Hiren length was then measured, and rods selected. They were then placed through the MIS tabs, subfascial and locked into L5 bilateral and sequentially reduced into L4 for listhesis reduction. These were then locked into place with set screws and finally tightened. Hiren holders removed and images taken showing good placement of rods, good lordosis and jehovah's witness of height. Tabs were broken off. Wounds were then copiously irrigated with NSS. [place] used for TP decortication and mixture of MagnatOs, allograft and autograft packed posterolateral. Fascia was then closed with 0 Vircyl. Deep subq closed with 0 Vicryl. Superficial subq closed with 2-0 Vicryl and skin with amol. Wound edges approximated very well. Wound was then cleaned with alcohol and dried. Wounds dressed with adaptic, 4x4, abd and tape. The patient was then transferred off the table back to their hospital bed a- traumatically. They were extubated by the department of anesthesia. They were then transferred to PACU in stable condition having tolerated the procedure with no complications.
[2024-07-13] MEDS: HYDROmorphone 0.5 MG/0.5 ML SYRINGE IVP PRN (16:37)
[2024-07-13 17:22] LABS: Glucose,Whole Blood 190 mg/dL (70-110)
[2024-07-13] MEDS: LACTATED RINGERS 1,000 ML IV SCH (18:15)
[2024-07-13] MEDS: ACETAMINOPHEN TAB 325 MG TAB PO SCH (18:20)
[2024-07-13 18:46] VITALS: RESP 18
[2024-07-13] MEDS: HYDROmorphone 1 MG/ML 1 ML SYRINGE IVP PRN (20:22)
[2024-07-13 20:38] LABS: Glucose,Whole Blood 175 mg/dL (70-110)
[2024-07-13] MEDS ORDERED: DEXTROSE 50% SYRINGE 50 ML IVP PRN ×2 (20:47)
[2024-07-13] MEDS ORDERED: ALBUTEROL NEBULIZED 2.5 MG/3 ML INHALATION PRN (20:48)
[2024-07-13] MEDS ORDERED: ALBUTEROL HFA INHALER INHALATION PRN (20:48)
[2024-07-13] MEDS: INSULIN LISPRO (HumaLOG) 100 UNIT/ML 10 mL VL SQ SCH (22:03)
[2024-07-14] MEDS: HYDROcodone/APAP 10-325MG 1 EACH TAB PO PRN ×2 (01:06→11:07)
[2024-07-14 06:21] LABS: Glucose,Whole Blood 128 mg/dL (70-110)
[2024-07-14] MEDS: CYCLOBENZAPRINE 5 MG TAB PO PRN (06:30)
[2024-07-14] MEDS: LEVOTHYROXINE 100 MCG TAB PO SCH (06:31)
--- NOTE | 2024-07-14 07:23 | CT ---
EXAMINATION TYPE: CT lumbar spine wo con DATE OF EXAM: 07/14/2024 12:27 AM COMPARISON: Plain film MRI. CLINICAL INDICATION: Female, 69 years old with history of s/p L4-L5 MIS PLIF; PHH, s/p L4-L5 MIS PLIF TECHNIQUE: Multiple axial images were obtained from the midportion of T11 through the sacroiliac vaishali nts. Soft tissue and bone windows in coronal and sagittal planes were obtained and reviewed. 3-D ref ormats of the bones were created on a separate workstation and submitted for review. Contrast used: mL of , (None, if empty). Oral contrast used: (None, if empty). CT DLP: 2086.4 mGycm, Automated exposure control for dose reduction was used. FINDINGS: Postsurgical changes to the lumbar spine with fixation hardware at L4, and L5 . Discectomy at L4-L5. Hardware limits evaluation at these levels. Hardware appears intact. No evidence of fracture. Postsurgical changes in the soft tissues with foci of gas present. Posterior back skin amol are pr esent. Multilevel degeneration changes throughout the spine with osteophyte formation and facet joint arthro pipo. No evidence for significant spinal canal or neural foraminal stenosis. IMPRESSION: Postsurgical changes without evidence of immediate post operative complication. [facility], , 07/14/2024 7:21 AM
[2024-07-14 07:57] VITALS: BP 121/60; PULSE 74; TEMP 98.4
--- NOTE | 2024-07-14 08:14 | P.PN ---
Subjective Progress Note Date: 07/14/24 Principal diagnosis: 1.L4-5 Grade I spondylolisthesis with spondylosis and stenosis 2.Lower extremity radiculopathy 3.Low back pain Patient seen and examined this morning. Patient is sitting up in chair at bedside. She reports that her pain is managed on current regimen. She states that the pain in the left lower extremity has resolved since the procedure. Patient describes an aching pain located in the anterior bilateral thighs. She states she is looking forward to working with physical therapy today. Prescription for rolling walker has been placed in chart. Surgical dressings to the lumbar spine are clean dry and intact. No active drainage. Discussed with patient if her pain is managed and she works well with therapy that she may possibly be discharged later today versus tomorrow. No acute concerns. Objective - Vital Signs Vital signs: Vital Signs Temp 97.8 F 07/14/24 01:34 Pulse 107 H 07/14/24 01:34 Resp 18 07/14/24 01:34 BP 109/50 07/14/24 01:34 Pulse Ox 93 L 07/14/24 01:34 FiO2 Intake & Output 07/13/24 07/13/24 07/14/24 06:59 18:59 06:59 Intake Total 1850 Output Total 220 850 Balance 1630 -850 Weight 114.7 kg 114.7 kg Intake: IV 1850 Output: Urine 145 850 Estimated Blood Loss 75 Other: Voiding Method Indwelling Catheter - Exam Physical Examination General: The patient is awake and alert, in no acute distress. Skin: Skin is warm and dry with no obvious rashes or lesions. Surgical incisions to the lumbar spine, dressings are clean dry and intact. No active drainage. Eye: Pupils are equal, round and reactive to light, extra-ocular movements are intact; there is normal conjunctiva bilaterally. Neck: The neck is supple, there is no tenderness and ROM intact. Respiratory: Respirations are non-labored. Gastrointestinal: Soft, non-distended, non-tender abdomen. Back: There is no tenderness to palpation in the midline, paralumbar, parathoracic or buttocks region. There is no obvious deformity. Musculoskeletal: ROM limited secondary to pain and stiffness from surgical procedure. Right: Shoulder abduction 5/5, elbow flexors 5/5, wrist dorsiflexors 5/5. finger abductor 5/5, solar crew member 5/5, hip flexor 4/5, knee flexor 4/5, ankle dorsiflexor 5/5, ankle plantarflexion 5/5 and extensor hallucis 5/5 Left: Shoulder abduction 5/5, elbow flexors 5/5, wrist dorsiflexors 5/5. finger abductor 5/5, solar crew member 5/5, hip flexor 4/5, knee flexor 4/5, ankle dorsiflexor 5/5, ankle plantarflexion 5/5 and extensor hallucis 5/5. Neurological: CN 2-12 intact. There are no obvious motor or sensory deficits. Movement and coordination equal and intact. Sensory exam to light touch intact C5-T1 and intact from L2-S1. Reflexes 2/4 in bilateral upper and lower extremities. Negative Hoffmans, babinski, and clonus signs. Psychiatric: Cooperative, appropriate mood & affect, normal judgment. - Labs Labs: Abnormal Lab Results - Last 24 Hours (Table) 07/13/24 07/13/24 07/13/24 Range/Units 11:46 17:20 20:36 POC Glucose (mg/dL) 144 H 190 H 175 H (70-110) mg/dL 07/14/24 Range/Units 06:20 POC Glucose (mg/dL) 128 H (70-110) mg/dL Assessment and Plan Assessment: Postop day 1: L4-L5 minimally invasive TLIF Plan: -Appreciate business sales consultant and team management. -Activity: Ambulate QID, OOB all meals, up and about, limit lifting bending twisting to less than 5 lbs. Use walker or cane if needed for stability. -Daily PT/OT, increase ambulation strength and balance. -Brace when up and about, not needed in bed or chair -Prescription for rolling walker has been placed in chart. -Pain control: Medications have been adjusted -Meds: reviewed -GI ppx: senna, Miralax -DVT PPX: Aspirin 81mg daily -Hygiene: Maintain incision clean and dry. May change dressing as needed, please document in notes if performed. Meticulous cleaning after BMs away from the incision site -Encourage IS 10x/hr -Dispo: Anticipate discharge home with homecare later today vs tomorrow 07/15/24. *I reviewed and discussed this case with my attending Dr. Palacios, whom has reviewed this chart and films and is in agreement with assessment and plan of care as outlined above. I have personally seen and examined the patient, performed the documentation and the assessment and plan as written. Number of minutes spent on the visit: [ ].
[2024-07-14] MEDS: allopurinoL 300 MG TAB PO SCH (08:46)
[2024-07-14] MEDS: MAGNESIUM OXIDE 400 MG TAB PO SCH (08:46)
[2024-07-14] MEDS: PRAVASTATIN SODIUM 20 MG TAB PO SCH (08:46)
[2024-07-14] MEDS: oxyBUTYnin chloride 5 MG TAB PO SCH (08:46)
[2024-07-14] MEDS: ASCORBIC ACID 500 MG TAB PO SCH (08:46)
[2024-07-14] MEDS: ZINC SULFATE 220 MG CAP PO SCH (08:46)
[2024-07-14] MEDS: SPIRONOLACTONE 25 MG TAB PO SCH (08:48)
[2024-07-14] MEDS: CYANOCOBALAMIN 500 MCG TAB PO SCH (08:49)
[2024-07-14] MEDS: CHOLECALCIFEROL 25 MCG (1000 IU) TABLET PO SCH (08:49)
[2024-07-14] MEDS: MULTIVITAMINS, THERA 1 EACH TAB PO SCH (08:49)
[2024-07-14] MEDS: ASPIRIN 81 MG PO SCH (08:49)
[2024-07-14 10:48] LABS: Basophils # (A) 0.06 X 10*3/uL (0.00-0.10); Basophils % (A) 0.4 %; Eosinophils # (A) 0.04 X 10*3/uL (0.04-0.35); Eosinophils % (A) 0.3 %; HCT 35.1 % (37.2-46.3); HGB 11.3 g/dL (12.0-15.0); Lymphocytes # (A) 1.62 X 10*3/uL (0.90-5.00); Lymphocytes % (A) 11.9 %; MCH 29.2 pg (27.0-32.0); MCHC 32.2 g/dL (32.0-37.0); MCV 90.7 FL (80.0-97.0); Mean Platelet Volume 10.7 FL (9.5-12.2); Monocytes # (A) 0.84 X 10*3/uL (0.20-1.00); Monocytes % (A) 6.2 %; NRBC Per 100 WBC 0 X 10*3/uL (0.00-0.01); Neutrophils # (A) 10.99 X 10*3/uL (1.80-7.70); Neutrophils % (A) 80.8 %; Platelet Count 225 X 10*3/uL (140-440); RBC 3.87 X 10*6/uL (4.10-5.20); RDW 14.1 % (11.5-14.5); WBC 13.61 X 10*3/uL (4.50-10.00)
[2024-07-14 11:27] LABS: BUN/Creat Ratio 12.62 Ratio (12.00-20.00); Blood Urea Nitrogen 10.1 mg/dL (9.0-27.0); Calcium 9.2 mg/dL (8.7-10.3); Carbon Dioxide 25.9 mmol/L (21.6-31.8); Chloride 100 mmol/L (96-109); Glucose 140 mg/dL (70-110); Potassium 4.3 mmol/L (3.5-5.5); Sodium 137 mmol/L (135-145)
--- NOTE | 2024-07-14 13:07 | P.DS ---
Providers Date of admission: 07/13/24 Expected date of discharge: 07/14/24 Attending physician: Anibal Palacios DO Consults: 07/13/24 16:20 Consult Physician Routine Consulting Provider: Hector Brito Consult Reason/Comments: medical management s/p L4-L5 MIS PLIF Do you want consulting provider notified?: Yes Primary care physician: Espinoza [facility] Course: Hospital Course: The patient was evaluated preoperatively and found to have the diagnosis of L4- L5 spondylosis with stenosis. They underwent appropriate preoperative care and were willing to undergo the intended procedure. They underwent a successful L4- L5 minimally invasive TLIF, were recovered appropriately and sent to the floor. While on the floor they worked with physical therapy, occupational therapy and nursing to enhance their recovery experience. Their pain was well controlled through their stay and they were started on appropriate medications, DVT ppx modalities, activity and dietary needs. Daily labs were monitored closely, and transfusions were only used when necessary. Medicine as well as other consulting services have made their input and have helped with our team approach and mu ltidisciplinary care. PT milestones have been met and passed and they have made the recommendation of Home for this patient and treating providers agree with this care path. The patient will be discharged home with appropriate medications, instructions and follow-up information and in stable condition. Patient Condition at Discharge: Good Plan - Discharge Summary Discharge Rx Participant: No New Discharge Prescriptions: New Cyclobenzaprine [Flexeril] 5 mg PO TID PRN #40 tablet PRN Reason: Muscle Spasm Naproxen 500 mg PO BID #28 tab HYDROcodone/APAP 10-325MG [[place] 10-325] 1 tab PO Q4-6H PRN #42 tab PRN Reason: Pain Sennosides/Docusate Sodium [Senna Plus 8.6-50 mg Tablet] 2 each PO DAILY PRN #20 tab PRN Reason: Constipation Sulfamethox-Tmp 800-160Mg [Bactrim DS 800-160 mg] 1 tab PO Q12HR #10 tab No Action Albuterol Inhaler [Ventolin Hfa Inhaler] 2 puff INHALATION RT-QID PRN PRN Reason: Shortness Of Breath Albuterol Nebulized [Ventolin Nebulized] 2.5 mg INHALATION Q4H PRN PRN Reason: Shortness Of Breath metFORMIN HCL [Glucophage] 500 mg PO DAILY Cyanocobalamin (Vitamin B-12) [Vitamin B12] 5,000 mcg PO DAILY Zinc 50 mg PO DAILY Cholecalciferol [Vitamin D3 (25 Mcg = 1000 Iu)] 50 mcg PO DAILY Ascorbic Acid [Vitamin C] 500 mg PO DAILY Furosemide [Lasix] 20 mg PO DAILY oxyBUTYnin chloride [Ditropan] 5 mg PO DAILY HYDROcodone/APAP 7.5-325MG [[place] 7.5-325] 1 tab PO TID PRN 30 Days #90 tab PRN Reason: Pain Magnesium Oxide [Mag-Oxide] 200 mg PO DAILY Pravastatin Sodium [Pravachol] 20 mg PO DAILY allopurinoL [Zyloprim] 300 mg PO DAILY Levothyroxine Sodium [Synthroid] 100 mcg PO DAILY Multivitamins, Thera [Multivitamin (formulary)] 1 tab PO DAILY Celecoxib [CeleBREX] 200 mg PO DAILY Semaglutide [Ozempic] 1 mg SQ TH Spironolactone [Aldactone] 25 mg PO DAILY Discharge Medication List Albuterol Inhaler [Ventolin Hfa Inhaler] 2 puff INHALATION RT-QID PRN 07/11/21 [History] Albuterol Nebulized [Ventolin Nebulized] 2.5 mg INHALATION Q4H PRN 07/11/21 [History] Ascorbic Acid [Vitamin C] 500 mg PO DAILY 07/11/21 [History] Cholecalciferol [Vitamin D3 (25 Mcg = 1000 Iu)] 50 mcg PO DAILY 07/11/21 [History] Cyanocobalamin (Vitamin B-12) [Vitamin B12] 5,000 mcg PO DAILY 07/11/21 [History] Levothyroxine Sodium [Synthroid] 100 mcg PO DAILY 07/11/21 [History] Multivitamins, Thera [Multivitamin (formulary)] 1 tab PO DAILY 07/11/21 [History] Pravastatin Sodium [Pravachol] 20 mg PO DAILY 07/11/21 [History] Zinc 50 mg PO DAILY 07/11/21 [History] allopurinoL [Zyloprim] 300 mg PO DAILY 07/11/21 [History] metFORMIN HCL [Glucophage] 500 mg PO DAILY 07/11/21 [History] Furosemide [Lasix] 20 mg PO DAILY 05/18/22 [History] Celecoxib [CeleBREX] 200 mg PO DAILY 02/25/24 [History] Semaglutide [Ozempic] 1 mg SQ TH 02/25/24 [History] oxyBUTYnin chloride [Ditropan] 5 mg PO DAILY 02/25/24 [History] HYDROcodone/APAP 7.5-325MG [[place] 7.5-325] 1 tab PO TID PRN 30 Days #90 tab 03/09/24 [Rx] Spironolactone [Aldactone] 25 mg PO DAILY 04/01/24 [History] Magnesium Oxide [Mag-Oxide] 200 mg PO DAILY 07/13/24 [History] Cyclobenzaprine [Flexeril] 5 mg PO TID PRN #40 tablet 07/14/24 [Rx] HYDROcodone/APAP 10-325MG [[place] 10-325] 1 tab PO Q4-6H PRN #42 tab 07/14/24 [Rx] Naproxen 500 mg PO BID #28 tab 07/14/24 [Rx] Sennosides/Docusate Sodium [Senna Plus 8.6-50 mg Tablet] 2 each PO DAILY PRN #20 tab 07/14/24 [Rx] Sulfamethox-Tmp 800-160Mg [Bactrim DS 800-160 mg] 1 tab PO Q12HR #10 tab 07/14/24 [Rx] Follow up Appointment(s)/Referral(s): Anibal Palacios DO [Doctor of Osteopathic Medicine] - 2 Weeks Activity/Diet/Wound Care/Special Instructions: Spine Discharge and Recovery Instructions Date of Surgery: 07/13/2024 Diagnosis: L4-L5 spondylosis with stenosis Procedure: L4-L5 minimally invasive TLIF Medications: See medication list All medication refills should be obtained through your primary care doctor or your clinic spine surgeon. Please discuss prescription refills at your follow up appointment. Do not call the hospital for medication refills. Activity: Encourage ambulation with assist of walker, Up and about 6-8x daily PT/OT daily work on balance, strength and mobility Up in chair with all meals Shower daily Brace: Use brace when up and about, do not wear in bed or shower Dressing: Leave your dressing in place for a total of 3 days post operatively. Then you may remove your dressing and leave open to air. Keep the area clean and if not able to keep area clean, then cover with sterile gauze and tape. Showering: You may shower 3 days after your procedure allowing soap and water to run over incision. Do not scrub. Do not soak. Blot dry. Follow up: Please confirm a follow up appointment with your surgeon 2 weeks post operatively. Please make an appointment to follow up with your PCP in 1-2 weeks after surgery for evaluation '3 phase, 3-week plan' POST OP WEEKS 1-3 1. Lifting/carrying/pushing/pulling limited to less than 5 pounds. 2. Do not sit for longer than 15 minutes at one time. Get up and walk around. Prolonged sitting is NOT advised. If you lay down, see if you can tolerate laying down on you front (belly side) 3. Walk for periods of 15 minutes = 1 mile but no longer; do it multiple times times each day. 4. Ice your low back after activity. POST OP WEEKS 3-6 1. Lifting limited to less than 20 pounds. 2. Do not sit for longer than 30 minutes at a time. Frequently change positions. Use a sit-to stand workstation or take frequent breaks from sitting if you have returned to work. 3. Walk for 30 minutes each day. If possible, do these three or more times a day POST OP WEEKS 6+ At your 6-week appointment we will give you a physical therapy referral to focus on a core stabilization and strengthening program. You should also work on leg & buttock strengthening, hamstring & quadriceps stretching, and continue a low impact aerobic activity program such as swimming, walking, or riding a stationary bicycle. During the initial 6 weeks after your surgery, you are at the highest risk of re-injuring your spine. You should generally avoid BLT's (bending, lifting and twisting combination motions) and follow the above guidelines to reduce the chance of reinjury. You can anticipate post op appointments in our office at approximately 3 weeks and 6 weeks after your surgery. INCISION CARE: If your incision is not draining you do NOT need to cover it with a dressing. Keep your incision clean, dry and intact. In most cases, we apply skin glue, amol or sutures to the incision at the time of surgery. This will be like a crust or have the appearance of a scab and will fall off in time on its own. The stitches or amol need to be removed at 3 weeks post op appointment. You may begin to shower 3 days after surgery (this allows the glue to dozier well). However, please avoid scrubbing the incision site or peeling off any of the skin glue. This will ensure optimal healing of your incision. Also, during this time avoid soaking the incision area in water - this includes swimming pools, hot tubs or baths. No ointments, lotions or oils on the incision until your surgeon allows. Leave amol, sutures or glue in place. Neurological dysfunction that comes on suddenly can also be a sign of a stroke. Below some common symptoms of a stroke are listed: B - balance difficulty such as sudden onset walking or leaning to one side - NEW E - eye problem such as sudden double vision or trouble seeing on one side - NEW F - Facial weakness or numbness on one side - NEW A - Arm or leg weakness or numbness on one side - NEW S - Slurred speech or difficulty with word finding - NEW T - Time is BRAIN! Call 911 as soon as you recognize these symptoms Diet: Consume a regular diet rich in vegetables and lean protein such as chicken or fish. You should consume in a ratio of approximately 20% fats|40% carbohydrates|40%protein. Vegetables, sweet potatoes, brown rice or quinoa are examples of good carbohydrates. Chips, white bread, cookies and sweets/sugar are examples of bad carbohydrates. Limit your bad carbs, go wild with good carbs. "Life's Simple 7" Guidelines as per [place] [employer] These will help you reclaim your life after surgery and bottler helper in your recovery, keeping in mind your restrictions. (1) Get Active. Physical activity can help people lose weight, control high blood pressure and cholesterol, feel emotionally better, and sleep better. (2) Control Cholesterol. Avoid a diet high in saturated fat, trans fat, & cholesterol. Limit whole milk & cream, ice cream, butter, egg yolks, processed meats (like sausage and hot dogs), and fatty meats. Choose healthy foods that are low in saturated fat, trans fat and cholesterol which include: Fruits and vegetables, fiber rich grain products (like whole grain pasta and brown rice), lean meat such as chicken, fish, nuts, seeds, and legumes. (3) Eat Better. Eat small portions. Shop at the grocery with a list and do not stray from it. Tips for a healthy diet include: Limit sodium intake to less than 1500mg daily, avoid prepackaged, processed, and fast foods, choose a diet rich in fruits, vegetables, and whole grain, high fiber foods, and limit saturated & cholesterol in your diet. (4) Manage Blood Pressure. If you have high blood pressure, you should have a cuff at home so that you can check your blood pressure regularly. Be sure you have a good cuff. An arm one is generally better than a wrist one. Bring the cuff to a doctor's appointment to validate that the measurements that your cuff are taking are accurate. Take your blood pressure twice daily when you are sitting down and relaxing. Record the numbers in a log and bring this log with you to your doctors' appointments. (5) Lose Weight if your BMI is above 25. A healthy BMI is between 19-25. To calculate Your BMI, you may use a Standard BMI Calculator on the NIH BMI website: <www.nhlbi.nih.gov/guidelines/obesity/BMI/bmicalc.htm>. Weigh oneself daily. If you are overweight, set a goal to lose weight. A pound a week loss if needed is a good target. (6) Reduce Blood Sugar. Limit foods and liquids with "added sugars." (Added sugars include sucrose, fructose, glucose, maltose, dextrose, high fructose corn syrup, corn syrup, concentrated fruit juice and honey). (7) Stop Smoking. If you smoke, quitting smoking is one of the best things that you can do for your health. Smoking increases your risk of heart attack, stroke, and peripheral vascular disease, which is a build-up of plaque in your arteries. Please discard all the cigarettes and lighters in your house. Have a plan for what you will do when you have the urge to smoke. Direct and second- hand smoke shortens your life as well as the lives of your family, friends and others around you. For your health and the health of those around you, please consider quitting! Proper Bending Body Mechanics: Maintain a wide stance with one foot slightly in front of the other. Keep your back straight. Bend utilizing the strength in your hips and knees. Do not bend at the waist. Maintain the lifted object at your waist-level close to your body. Avoid lifting weight that causes immediately pain or pain anywhere in the body afterwards. Smoking/Nicotine If there was ever one thing that you could do to increase your overall health, decrease your risk of cardiovascular problems by about 39% the second you make the choice, it is to STOP SMOKING. Your body's most instant gratification is the second you stop smoking. We have all heard the studies, read the articles but it is true, smoking is extremely bad for your overall health, and moreover it is detrimental to your bone health. Nicotine, IN ANY FORM, kills bone cells, prevents your body from healing fractures, and significantly prolongs healing after surgery. In spine surgery specifically, it increases your risk of not healing your bones to create a fusion and increases your risk of having a revision surgery due to this up to 60%. I know it is hard. I know it feels impossible. But there are ways. Take control of your life. We are here to help you through it. And when you are ready, ask us and we can direct you to help if you desire. Use the START Plan to Quit Smoking (please visit the [employer].org website li nina below for more information): S = Set a quit date. Choose a date within the next 2 weeks, so you have enough time to prepare without losing your motivation to quit. If you mainly smoke at work, quit on the weekend, so you have a few days to adjust to the change. T = Tell family, friends, and co-workers that you plan to quit. Let your friends and family in on your plan to quit smoking and tell them you need their support and encouragement to stop. Look for a quit natalia who wants to stop smoking as well. You can help each other get through the rough times. A = Anticipate and plan for the challenges you'll face while quitting. Most people who begin smoking again do so within the first 3 months. You can help yourself make it through by preparing ahead for common challenges, such as nicotine withdrawal and cigarette cravings. R = Remove cigarettes and other tobacco products from your home, car, and work. Throw away all your cigarettes (no emergency pack!), lighters, ashtrays, and matches. Wash your clothes and freshen up anything that smells like smoke. Shampoo your car, clean your drapes and carpet, and steam your furniture. T = Talk to your doctor about getting help to quit. Your doctor can prescribe medication to help with withdrawal and suggest other alternatives. If you can't see a doctor, you can get many products over the counter at your local pharmacy or grocery store, including the nicotine patch, nicotine lozenges, and nicotine gum. Resources for Quitting Smoking: <https://www.[place].gov/documents/[facility]/Quit_Tobacco_Resourc es_for_patients_313480_7.pdf> Supplementation: Take recommended dosages of Vitamin D and Calcium to help fortify your bones and help them to heal. See your health maintenance packet for dosages and recommended levels. DVT/VTE prophylaxis: You will be given compression stockings from the hospital. Wear these daily for the first two weeks after surgery. You may take them off at night. You may be prescribed a medication to help thin your blood. Take this as directed. If you are not prescribed this medication, early and frequent ambulation has been shown to be the best prophylaxis to deep vein thrombosis and sequelae related to this event. Discharge Disposition: HOME SELF-CARE
[2024-07-14] MEDS: INSULIN LISPRO (HumaLOG) 100 UNIT/ML 10 mL VL SQ ONE (13:25)
--- NOTE | 2024-07-14 14:13 | P.CONS ---
History of Present Illness - Reason for Consult Uncontrolled type 2 diabetes mellitus - History of Present Illness 69-year-old female admitted for L4-L5 spondylosis and stenosis status post minimally invasive TLIF. Patient still complaining of back pain. Does have leukocytosis without any clinical evidence of infection denied any cough dysuria does not have any fever. Does have history of asthma not in acute exacerbation type 2 diabetes mellitus elevated blood sugars patient is on semaglutide and oral sulfonylureas. Does have history of hypothyroidism. REVIEW OF SYSTEMS: All other systems are negative except those mentioned in the HPI PHYSICAL EXAMINATION: GENERAL: The patient is alert and oriented x3, not in any acute distress. Well developed, well nourished. HEENT: Pupils are round and equally reacting to light. EOMI. No scleral icterus. No conjunctival pallor. Normocephalic, atraumatic. No pharyngeal erythema. No thyromegaly. CARDIOVASCULAR: S1 and S2 present. No murmurs, rubs, or gallops. PULMONARY: Chest is clear to auscultation, no wheezing or crackles. ABDOMEN: Soft, nontender, nondistended, normoactive bowel sounds. No palpable organomegaly. MUSCULOSKELETAL: No joint swelling or deformity. EXTREMITIES: No cyanosis, clubbing, or pedal edema. NEUROLOGICAL: Gross neurological examination did not reveal any focal deficits. SKIN: No rashes. Assessment and plan Leukocytosis reactive secondary to surgery -Lumbar laminectomy: Further management as per primary service -Type 2 diabetes mellitus uncontrolled elevated blood sugars hemoglobin A1c was 7.9 patient's patient is on semaglutide she is expected to lose weight and her blood sugars to be under control patient will resume on her home regimen follow- up with PCP for further management. -Hyperlipidemia -Hypertension -Obesity sleep apnea uses CPAP machine which she will continue -Hypothyroidism No changes in home medications are being made at this time patient will follow- up with PCP for uncontrolled elevated blood sugars Past Medical History Past Medical History: Asthma, Cancer, Diabetes Mellitus, Hyperlipidemia, Hypertension, Osteoarthritis (OA), Sleep Apnea/CPAP/BIPAP, Thyroid Disorder Additional Past Medical History / Comment(s): C PAP MACHINE, SKIN CANCER(squamous and basal cell), BLE NEUROPATHY,diverticulitis,chronic back pain History of Any Multi-Drug Resistant Organisms: None Reported Past Surgical History: Hysterectomy, Tonsillectomy Additional Past Surgical History / Comment(s): RK EYE SURGERY -CONCHA EYELID SURGERY X2 , LT SHOULDER, MOHS SX RT LEG & LT LEG, COLONOSCOPY, BILAT TEAR DUCT STENTS 05/17/22-NO ANESTHESIA Past Anesthesia/Blood Transfusion Reactions: Family History of Problems w/ Anest hesia, Motion Sickness Additional Past Anesthesia/Blood Transfusion Reaction / Comm: DTRs have PONV Smoking Status: Former smoker - Past Family History Father Family Medical History: Cancer Additional Family Medical History / Comment(s): lung cancer Brother(s) Family Medical History: Cancer Additional Family Medical History / Comment(s): COLON CANCER Sister(s) Family Medical History: Cancer Additional Family Medical History / Comment(s): BREAST CANCER Mother Additional Family Medical History / Comment(s): ""leaky heart valve" Medications and Allergies Home Medications Medication Instructions Recorded Confirmed Type Albuterol Inhaler [Ventolin Hfa 2 puff INHALATION RT-QID PRN 07/11/21 07/13/24 History Inhaler] Albuterol Nebulized [Ventolin 2.5 mg INHALATION Q4H PRN 07/11/21 07/13/24 History Nebulized] Ascorbic Acid [Vitamin C] 500 mg PO DAILY 07/11/21 07/13/24 History Cholecalciferol [Vitamin D3 (25 50 mcg PO DAILY 07/11/21 07/13/24 History Mcg = 1000 Iu)] Cyanocobalamin (Vitamin B-12) 5,000 mcg PO DAILY 07/11/21 07/13/24 History [Vitamin B12] Levothyroxine Sodium [Synthroid] 100 mcg PO DAILY 07/11/21 07/13/24 History Multivitamins, Thera [Multivitamin 1 tab PO DAILY 07/11/21 07/13/24 History (formulary)] Pravastatin Sodium [Pravachol] 20 mg PO DAILY 07/11/21 07/13/24 History Zinc 50 mg PO DAILY 07/11/21 07/13/24 History allopurinoL [Zyloprim] 300 mg PO DAILY 07/11/21 07/13/24 History metFORMIN HCL [Glucophage] 500 mg PO DAILY 07/11/21 07/13/24 History Furosemide [Lasix] 20 mg PO DAILY 05/18/22 07/13/24 History Celecoxib [CeleBREX] 200 mg PO DAILY 02/25/24 07/13/24 History Semaglutide [Ozempic] 1 mg SQ TH 02/25/24 07/13/24 History oxyBUTYnin chloride [Ditropan] 5 mg PO DAILY 02/25/24 07/13/24 History HYDROcodone/APAP 7.5-325MG [[place] 1 tab PO TID PRN 30 Days #90 tab 03/09/24 07/13/24 Rx 7.5-325] Spironolactone [Aldactone] 25 mg PO DAILY 04/01/24 07/13/24 History Magnesium Oxide [Mag-Oxide] 200 mg PO DAILY 07/13/24 07/13/24 History Cyclobenzaprine [Flexeril] 5 mg PO TID PRN #40 tablet 07/14/24 Rx HYDROcodone/APAP 10-325MG [[place] 1 tab PO Q4-6H PRN #42 tab 07/14/24 Rx 10-325] Naproxen 500 mg PO BID #28 tab 07/14/24 Rx Sennosides/Docusate Sodium [Senna 2 each PO DAILY PRN #20 tab 07/14/24 Rx Plus 8.6-50 mg Tablet] Sulfamethox-Tmp 800-160Mg [Bactrim 1 tab PO Q12HR #10 tab 07/14/24 Rx DS 800-160 mg] Allergies Allergy/AdvReac Type Severity Reaction Status Date / Time amoxicillin Allergy Rash/Hives Verified 07/13/24 11:21 cefaclor [From Ceclor] Allergy Rash/Hives Verified 07/13/24 11:21 gabapentin Allergy Rash/Hives Verified 07/13/24 11:21 levofloxacin [From Levaquin] Allergy Rash/Hives Verified 07/13/24 11:21 lomefloxacin [From Maxaquin] Allergy Rash/Hives Verified 07/13/24 11:21 monosodium glutamate [MSG] Allergy Rash/Hives Verified 07/13/24 11:21 Penicillins Allergy Rash/Hives Verified 07/13/24 11:21 potassium chloride Allergy Rash/Hives Verified 07/13/24 11:21 bounce fabric sheets Allergy Rash/Hives Uncoded 07/13/24 11:21 Physical Exam Vitals: Vital Signs Temp Pulse Resp BP Pulse Ox 07/14/24 07:15 98.4 F 74 18 121/60 96 07/14/24 01:34 97.8 F 107 H 18 109/50 93 L 07/13/24 20:10 85 18 07/13/24 19:35 98.3 F 85 18 137/70 98 07/13/24 18:09 98.1 F 83 18 170/88 96 07/13/24 17:50 82 16 134/85 95 07/13/24 17:45 85 16 165/75 95 07/13/24 17:38 85 16 177/77 95 07/13/24 17:25 76 18 193/84 94 L 07/13/24 17:04 83 16 184/79 94 L 07/13/24 16:49 83 16 155/67 98 07/13/24 16:37 85 16 168/70 100 07/13/24 16:22 97.4 F L 85 14 167/80 98 Intake and Output 07/13/24 07/14/24 07/14/24 22:59 06:59 14:59 Intake Total 0 Output Total 220 850 Balance -220 -850 Intake: IV 0 Output: Urine 145 850 Estimated Blood Loss 75 Other: Voiding Method Indwelling Catheter Toilet Weight 114.7 kg Results CBC & Chem 7: 07/14/24 05:59 07/14/24 05:59 Labs: Abnormal Lab Results - Last 24 Hours (Table) 07/13/24 07/13/24 07/14/24 Range/Units 17:20 20:36 05:59 WBC (4.50-10.00) X 10*3/uL RBC (4.10-5.20) X 10*6/uL Hgb (12.0-15.0) g/dL Hct (37.2-46.3) % Immature Gran # (0.00-0.04) X 10*3/uL Neutrophils # (1.80-7.70) X 10*3/uL Glucose (70-110) mg/dL POC Glucose (mg/dL) 190 H 175 H (70-110) mg/dL Hemoglobin A1c 7.9 H (<=6.0) % 07/14/24 07/14/24 07/14/24 Range/Units 05:59 05:59 06:20 WBC 13.61 H (4.50-10.00) X 10*3/uL RBC 3.87 L (4.10-5.20) X 10*6/uL Hgb 11.3 L (12.0-15.0) g/dL Hct 35.1 L (37.2-46.3) % Immature Gran # 0.06 H (0.00-0.04) X 10*3/uL Neutrophils # 10.99 H (1.80-7.70) X 10*3/uL Glucose 140 H (70-110) mg/dL POC Glucose (mg/dL) 128 H (70-110) mg/dL Hemoglobin A1c (<=6.0) %
[2024-07-15] MEDS ORDERED: MELOXICAM 7.5 MG TAB PO SCH (09:00)
== END 2024-07-14 16:03 | disposition home or self-care (01) ==
LOC: OR 10:51 → 4SSUR 17:03 → OR 07-14 16:03
PROVIDERS: ATTEND Orthopaedic Surgery
DX: M48.061 Spinal stenosis, lumbar region without neurogenic claudication (principal); M47.26 Other spondylosis with radiculopathy, lumbar region; M43.16 Spondylolisthesis, lumbar region; M51.26 Other intervertebral disc displacement, lumbar region; I10 Essential (primary) hypertension; E11.9 Type 2 diabetes mellitus without complications; F17.210 Nicotine dependence, cigarettes, uncomplicated; Z79.890 Hormone replacement therapy; Z79.84 Long term (current) use of oral hypoglycemic drugs; Z79.85 Long-term (current) use of injectable non-insulin antidiabetic drugs; E78.5 Hyperlipidemia, unspecified; E03.9 Hypothyroidism, unspecified; G47.30 Sleep apnea, unspecified; J45.909 Unspecified asthma, uncomplicated
CPT/HCPCS: 97161; 80048; 85025; 83036; 72100; 72131; 22633; C1713; C1734; J1100; J0690 ×2; J2405; J1171 ×3; J0665